=== PATIENT | female | born 1990 | race Caucasian/White ===

== ENCOUNTER 2021-06-08 17:45 | Emergency (ER) | payer BC ==
[2021-06-08 19:20] VITALS: BP 144/90; PULSE 90; RESP 18; TEMP 97.9
[2021-06-08 20:09] LABS: Appearance,Urine Clear (Clear); Bilirubin,Urine Negative (Negative); Blood,Urine Negative (Negative); Color,Urine Yellow; Glucose,Urine (UA) Negative (Negative); Ketones,Urine 2+ (Negative); Leukocyte Esterase,Urine Negative (Negative); Nitrite,Urine Negative (Negative); PH, Urine 5.5 (5.0-8.0); Protein,Urine Trace (Negative); Specific Gravity,Urine 1.036 (1.001-1.035); Urobilinogen,Urine <2.0 mg/dL (<2.0)
[2021-06-08] MEDS ORDERED: SODIUM CHLORIDE 0.9% 2,000 ML IV STA (20:50)
[2021-06-08] MEDS ORDERED: ONDANSETRON 4 MG/2 ML VIAL IVP STA (20:52)
[2021-06-08 21:49] LABS: ALT 16 U/L (4-34); AST 23 U/L (14-36); African American GFR (CKD) >90 (>60 ml/min/1.73 sqM); Albumin 4.4 g/dL (3.5-5.0); Alkaline Phosphatase 42 U/L (38-126); Anion Gap 7 mmol/L; Basophils # (A) 0.1 k/uL (0-0.2); Basophils % (A) 1 %; Blood Urea Nitrogen 8 mg/dL (7-17); Calcium 9.2 mg/dL (8.4-10.2); Carbon Dioxide 22 mmol/L (22-30); Chloride 105 mmol/L (98-107); Eosinophils # (A) 0.1 k/uL (0-0.7); Eosinophils % (A) 1 %; Glucose 86 mg/dL (74-99); HCT 39.4 % (34.0-46.0); HGB 13.8 gm/dL (11.4-16.0); Lipase 27 U/L (23-300); Lymphocytes # (A) 2.9 k/uL (1.0-4.8); Lymphocytes % (A) 35 %; MCH 31.7 pg (25.0-35.0); MCHC 34.9 g/dL (31.0-37.0); MCV 90.7 fL (80.0-100.0); Monocytes # (A) 0.4 k/uL (0-1.0); Monocytes % (A) 5 %; Neutrophils # (A) 4.6 k/uL (1.3-7.7); Neutrophils % (A) 57 %; Non-African American GFR(CKD) >90 (>60 ml/min/1.73 sqM); Platelet Count 257 k/uL (150-450); Potassium 3.8 mmol/L (3.5-5.1); RBC 4.35 m/uL (3.80-5.40); Sodium 134 mmol/L (137-145); Total Bilirubin 0.5 mg/dL (0.2-1.3); Total Protein 7.2 g/dL (6.3-8.2); WBC 8.1 k/uL (3.8-10.6)
[2021-06-08] MEDS ORDERED: ACETAMINOPHEN TAB 500 MG TAB PO STA (22:00)
--- NOTE | 2021-06-08 22:04 | ED ---
Abdominal Pain HPI - General Chief Complaint: Abdominal Pain Stated Complaint: 11 wks preg/nausea Time Seen by Provider: 06/08/21 20:40 Source: patient Mode of arrival: ambulatory Limitations: no limitations - History of Present Illness Initial Comments: Patient is a A5 female with a positive at-home test who presents to the emergency department with the chief complaint of intermittent nausea and vomiting 3 weeks. Patient states that she estimates she is 10 weeks with unknown date of last menstrual period as patient reports she has had several miscarriages that have caused her menstruation to be inconsistent. Patient reports that she called Dr. Gresham today due to her inability to tolerate food or water who sent her to the emergency department. Patient states she has intermittent lower abdominal cramping with radiation to the lower back. She denies history of trauma or injury. Patient reports a headache that she be lieves is due to dehydration. She denies other concerns at this time including fever, chills, shortness of breath, chest pain, flank pain, constipation, diarrhea, burning with urination, vaginal bleeding. Patient has not had her initial appointment with Dr. Gresham for first ultrasound. - Related Data Previous Rx's Medication Instructions Recorded Ondansetron Odt [Zofran Odt] 4 mg PO Q8HR PRN 7 Days #21 tab 06/08/21 Allergies Allergy/AdvReac Type Severity Reaction Status Date / Time No Known Allergies Allergy Verified 06/08/21 19:20 Review of Systems ROS Statement: Those systems with pertinent positive or pertinent negative responses have been documented in the HPI. ROS Other: All systems not noted in ROS Statement are negative. Past Medical History Past Medical History: Asthma, Thyroid Disorder History of Any Multi-Drug Resistant Organisms: None Reported Additional Past Surgical History / Comment(s): breast biopsy Past Psychological History: No Psychological Hx Reported Smoking Status: Never smoker Past Alcohol Use History: None Reported Past Drug Use History: Marijuana General Exam Limitations: no limitations General appearance: alert, in no apparent distress Head exam: Present: atraumatic, normocephalic, normal inspection Eye exam: Present: normal appearance, PERRL, EOMI. Absent: scleral icterus, conjunctival injection, periorbital swelling ENT exam: Present: mucous membranes moist Respiratory exam: Present: normal lung sounds bilaterally. Absent: respiratory distress, wheezes, rales, rhonchi, stridor Cardiovascular Exam: Present: regular rate, normal rhythm, normal heart sounds. Absent: systolic murmur, diastolic murmur, rubs, gallop, clicks GI/Abdominal exam: Present: soft, normal bowel sounds. Absent: distended, tenderness, guarding, rebound, rigid Back exam: Present: normal inspection, full ROM. Absent: tenderness Neurological exam: Present: alert, oriented X3, CN II-XII intact Psychiatric exam: Present: normal affect, normal mood Skin exam: Present: warm, dry, intact, normal color. Absent: rash Course Vital Signs 06/08/21 19:17 Temperature 97.9 F Pulse Rate 90 Respiratory 18 Rate Blood Pressure 144/90 O2 Sat by Pulse 97 Oximetry Medical Decision Making - Medical Decision Making This is a 31-year-old female with a positive at-home test who presents with intermittent nausea and vomiting 3 weeks. Thorough history and examination were performed. The abdomen is soft and nontender in all 4 quadrants. Laboratory studies are relatively unremarkable. Urinalysis does not indicate infection. Ultrasound was obtained which shows a viable intrauterine with ultrasound gestational age 10 weeks and 2 days with heart rate 163. Patient given large fluid bolus and Zofran. On reevaluation patient is feeling much better. Patient tolerated PO test. Patient will be discharged with Zofran prescription. I also recommended [id number] vitamin B6 and Unisom. She is instructed to follow-up with Dr. Gresham at her appointment tomorrow. Return par ameters discussed. Patient verbalizes understanding and is agreeable to plan. Dr. Meade is my attending. - Lab Data Result diagrams: 06/08/21 21:08 06/08/21 21:08 Lab Results 06/08/21 06/08/21 06/08/21 Range/Units 19:21 21:08 21:08 WBC 8.1 (3.8-10.6) k/uL RBC 4.35 (3.80-5.40) m/uL Hgb 13.8 (11.4-16.0) gm/dL Hct 39.4 (34.0-46.0) % MCV 90.7 (80.0-100.0) fL MCH 31.7 (25.0-35.0) pg MCHC 34.9 (31.0-37.0) g/dL RDW 13.0 (11.5-15.5) % Plt Count 257 (150-450) k/uL MPV 9.0 Neutrophils % 57 % Lymphocytes % 35 % Monocytes % 5 % Eosinophils % 1 % Basophils % 1 % Neutrophils # 4.6 (1.3-7.7) k/uL Lymphocytes # 2.9 (1.0-4.8) k/uL Monocytes # 0.4 (0-1.0) k/uL Eosinophils # 0.1 (0-0.7) k/uL Basophils # 0.1 (0-0.2) k/uL Sodium 134 L (137-145) mmol/L Potassium 3.8 (3.5-5.1) mmol/L Chloride 105 (98-107) mmol/L Carbon Dioxide 22 (22-30) mmol/L Anion Gap 7 mmol/L BUN 8 (7-17) mg/dL Creatinine 0.47 L (0.52-1.04) mg/dL Est GFR (CKD-EPI)AfAm >90 (>60 ml/min/1.73 sqM) Est GFR (CKD-EPI)NonAf >90 (>60 ml/min/1.73 sqM) Glucose 86 (74-99) mg/dL Calcium 9.2 (8.4-10.2) mg/dL Total Bilirubin 0.5 (0.2-1.3) mg/dL AST 23 (14-36) U/L ALT 16 (4-34) U/L Alkaline Phosphatase 42 (38-126) U/L Total Protein 7.2 (6.3-8.2) g/dL Albumin 4.4 (3.5-5.0) g/dL Lipase 27 (23-300) U/L HCG, Quant 55407.0 mIU/mL Urine Color Yellow Urine Appearance Clear (Clear) Urine pH 5.5 (5.0-8.0) Ur Specific Horatio 1.036 H (1.001-1.035) Urine Protein Trace H (Negative) Urine Glucose (UA) Negative (Negative) Urine Ketones 2+ H (Negative) Urine Blood Negative (Negative) Urine Nitrite Negative (Negative) Urine Bilirubin Negative (Negative) Urine Urobilinogen <2.0 (<2.0) mg/dL Ur Leukocyte Esterase Negative (Negative) Disposition Clinical Impression: Nausea and vomiting during Disposition: HOME SELF-CARE Condition: Good Additional Instructions: Please take Zofran as prescribed. You may take [id number] vitamin B6 and Unisom for nausea and vomiting. Please do not operate machinery while taking Unisom as it can cause drowsiness. Please follow-up with Dr. Gresham as scheduled tomorrow. Return to the emergency department if you experience new, concerning, or worsening symptoms. Prescriptions: Ondansetron Odt [Zofran Odt] 4 mg PO Q8HR PRN 7 Days #21 tab PRN Reason: Nausea Is patient prescribed a controlled substance at d/c from ED?: No Referrals: Wei Lema MD [Primary Care Provider] - 1-2 days Time of Disposition: 22:46
--- NOTE | 2021-06-08 22:05 | US ---
EXAMINATION TYPE: Transabdominal DATE OF EXAM: 06/08/2021 9:37 PM COMPARISON: NONE CLINICAL HISTORY: pelvic cramping, no previous US. Patient is experiencing back pain and pelvic cramp ing, n/v. EXAM PERFORMED: Transabdominal (TA) EXAM MEASUREMENTS: A4 GESTATIONAL AGE / DATING Physician Established: (10 weeks/5 days) EDC: 12/30/2021 Dates by LMP: LMP unknown Dates by First Scan: No previous this is first scan Dates by Current Scan for: (10 weeks/2 days) EDC: 01/02/2022 MATERNAL ANATOMY Uterus: 9.8 x 6.5 x 8.3 cm Right Ovary: 3.4 x 2.5 x 2.2 cm Left Ovary: 3.3 x 2.1 x 2.4 cm Post CDS / Adnexa: wnl Presence of free fluid: no Presence of corpus luteal cyst: no Presence of subchorionic bleed: no GESTATION / SURVEY CRL: 3.35 (10 weeks/2 days) MSD: wnl Yolk Sac (normal less than 6mm): no yolk sac seen Heart Rate: 163 bpm Rhythm: normal IUP: Viable IUP Date of LMP: unknown Beta HcG (if available): Not available at this time IMPRESSION: The ultrasound gestational age is 10 weeks and 2 days.
== END 2021-06-08 23:01 | disposition home or self-care (01) ==
LOC: EC 17:45
DX: O21.8 Other vomiting complicating pregnancy (principal); O99.511 Diseases of the respiratory system complicating pregnancy, first trimester; J45.909 Unspecified asthma, uncomplicated; E07.9 Disorder of thyroid, unspecified; F12.90 Cannabis use, unspecified, uncomplicated; Z3A.10 10 weeks gestation of pregnancy
CPT/HCPCS: 99284; 96374; 96361 ×2; 36415; 80053; 83690; 85025; 81003; 84702; 76801; J2405

== ENCOUNTER 2021-10-26 23:02 | Outpatient (CLI) | payer BC ==
[2021-10-27 02:44] VITALS: BP 130/72; PULSE 86; RESP 16; TEMP 96.7
--- NOTE | 2021-10-29 09:02 | P.MSEPDOC ---
Presenting Problems - Arrival Data Date of Arrival on Unit: 10/26/21 Time of Arrival on Unit: 23:03 Mode of Transport: Ambulatory - Complaint OB-Reason for Admission/Chief Complaint: Possible Onset of Labor Comment: contractions 4 min apart for approx an hour Medical History - Information : 7 Para: 1 Term: 1 : 0 Abortions: Spontaneous or Elective: 5 Number of Living Children: 1 - Gestational Age Gestational Age by YOEL (wks/days): 30 Weeks and 3 Days Review of Systems - Review of Systems Constitutional: No problems Breast: No problems ENT: No problems Cardiovascular: No problems Respiratory: No problems Gastrointestinal: No problems Genitourinary: No problems Musculoskeletal: No problems Neurological: No problems Skin: No problems Vital Signs - Temperature Temperature: 96.7 F Temperature Source: Temporal Artery Scan - Pulse Right Supine Ulnar Pulse Rate: 86 Pulse Assessment Method: Automatic Cuff - Respirations Respiratory Rate: 16 Oxygen Delivery Method: Room Air O2 Sat by Pulse Oximetry: 99 - Blood Pressure Right Arm Supine Blood Pressure: 130/72 Blood Pressure Mean: 91 Blood Pressure Source: Automatic Cuff Medical Screen Scoring - Cervical Exam Dilation (cm): 0 Membranes: Intact - Uterine Contractions Frequency From (mins): 4 Frequency To (mins): 4 Duration From (seconds): 40 Duration To (seconds): 50 Intensity: Mild Resting: Soft to palpation - Assessment - Baby A Baseline FHR: 130 Heart Rate - NICHD Category: Category I (Normal) NST: Reactive Physician Notification - Physician Notified Physician Notified Date: 10/27/21 Physician Notified Time: 00:06 Physician: Yashira Calhoun New Order Received: Yes - Notification Comment Comment: Run FFN and orally hydrate patient then may discharge to home if FFN comes back negative Maternal Triage Index - Maternal Triage Index Presenting for scheduled procedure w/no complaint: No - Stat/Priority 1 Stat Priority 1: No - Urgent/Priority 2 Urgent Priority 2: Yes Provider Notified: Yashira Calhoun Provider Notified Time: 00:06 Criteria Met for Priority 2: <34 weeks w detectable uterine ctx, closed thick and high, Disposition - Disposition OB Disposition: Physician follow up in office, Discharge to home Discharge Date: 10/27/21 Discharge Time: 01:34 I agree with the RN Medical Screening Exam: Yes Case reviewed; plan agreed upon as documented in EMR&OBIX.: Yes Diagnosis: FALSE LABOR BEFORE 37 COMPLETED WEEKS OF GEST, THIRD TRI
== END 2021-10-27 01:34 | disposition home or self-care (01) ==
LOC: FBPOP 23:02
PROVIDERS: ATTEND Obstetrics & Gynecology
DX: O47.03 False labor before 37 completed weeks of gestation, third trimester (principal); Z3A.30 30 weeks gestation of pregnancy
CPT/HCPCS: 59025; 82731; 99213

== ENCOUNTER 2021-12-07 13:30 | Outpatient (CLI) | payer BC ==
[2021-12-07] MEDS ORDERED: LACTATED RINGERS 1,000 ML IV SCH (15:00)
[2021-12-07 15:41] VITALS: BP 135/88; PULSE 91; RESP 18; TEMP 96
--- NOTE | 2021-12-07 20:15 | P.MSEPDOC ---
Presenting Problems - Arrival Data Date of Arrival on Unit: 12/07/21 Time of Arrival on Unit: 13:30 Mode of Transport: Ambulatory - Complaint OB-Reason for Admission/Chief Complaint: Possible Onset of Labor Comment: Contractions since 399 Medical History - Information : 7 Para: 1 Term: 1 Number of Living Children: 1 - Gestational Age Gestational Age by YOEL (wks/days): 36 Weeks and 2 Days Review of Systems - Review of Systems Constitutional: No problems Breast: No problems ENT: No problems Cardiovascular: No problems Respiratory: No problems Gastrointestinal: No problems Genitourinary: No problems Musculoskeletal: No problems Neurological: No problems Skin: No problems Vital Signs - Temperature Temperature: 96 F Temperature Source: Temporal Artery Scan - Pulse Apical Pulse Rate: 91 Pulse Assessment Method: Automatic Cuff - Respirations Respiratory Rate: 18 Oxygen Delivery Method: Room Air O2 Sat by Pulse Oximetry: 98 - Blood Pressure Right Arm Sitting Blood Pressure: 135/88 Blood Pressure Mean: 103 Blood Pressure Source: Automatic Cuff Medical Screen Scoring - Cervical Exam Dilation (cm): 1.5 Effacement (%): 50 Station: -2 Membranes: Intact - Uterine Contractions Frequency From (mins): 1 Frequency To (mins): 3 Duration From (seconds): 30 Duration To (seconds): 40 Intensity: Moderate Resting: Soft to palpation - Assessment - Baby A Baseline FHR: 145 Heart Rate - NICHD Category: Category I (Normal) NST: Reactive Physician Notification - Physician Notified Physician Notified Date: 12/07/21 Physician Notified Time: 14:30 Physician: Astrid Gresham New Order Received: Yes - Notification Comment Comment: [facility] , 36 05/01, c/o cramping that radiates. to back, rectal pressure, starry [place] since Saturday, epi/heartburn pain since Saturday. Reviewed BP, negative amnisure, reactive NST. Orders rec'd to provide 1L LR and recheck. cervix. If no change, pt may be d/c home after fluid. *SVE unchanged; Pt states feeling better c\IV fluids and is comfortable going home. Maternal Triage Index - Maternal Triage Index Presenting for scheduled procedure w/no complaint: No - Stat/Priority 1 Stat Priority 1: No - Urgent/Priority 2 Urgent Priority 2: No - Prompt/Priority 3 Prompt Priority 3: Yes Criteria Met for Priority 3: 36 2/7; contractions Disposition - Disposition OB Disposition: Physician follow up in office, Discharge to home, Written follow up instructions reviewed Discharge Date: 12/07/21 Discharge Time: 15:30 I agree with the RN Medical Screening Exam: Yes Case reviewed; plan agreed upon as documented in EMR&OBIX.: Yes Diagnosis: FALSE LABOR BEFORE 37 COMPLETED WEEKS OF GEST, THIRD TRI
== END 2021-12-07 15:30 | disposition home or self-care (01) ==
LOC: FBPOP 13:30
PROVIDERS: ATTEND Obstetrics & Gynecology
DX: O47.03 False labor before 37 completed weeks of gestation, third trimester (principal); Z3A.36 36 weeks gestation of pregnancy
CPT/HCPCS: 59025; 96360; 99215

== ENCOUNTER 2021-12-27 06:14 | Inpatient (IN) | payer BC ==
[2021-12-27] MEDS ORDERED: METHYLERGONOVINE 0.2 MG/ML 1 ML AMP IM PRN (07:07)
[2021-12-27] MEDS ORDERED: TERBUTALINE 1 MG/ML VIAL SQ PRN (07:07)
[2021-12-27] MEDS ORDERED: LIDOCAINE 0.5% (PF) 5 MG/ML (50 ML SDV) SQ PRN (07:07)
[2021-12-27] MEDS ORDERED: OXYTOCIN 10 UNIT/ML 1 ML VIAL IM PRN (07:07)
[2021-12-27] MEDS ORDERED: CARBOPROST TROMETHAMINE 250 MCG/ML 1 ML AMP IM PRN (07:07)
[2021-12-27] MEDS ORDERED: OXYTOCIN 30 UNITS/500 ML NS 30 UNIT in SALINE 1 500ML.BAG IV SCH (07:15)
[2021-12-27] MEDS: LACTATED RINGERS 1,000 ML IV SCH ×3 (07:16→15:07)
[2021-12-27 07:19] LABS: Basophils % (A) 0 %; Eosinophils # (A) 0.1 k/uL (0-0.7); Eosinophils % (A) 1 %; HCT 35.9 % (34.0-46.0); HGB 12.7 gm/dL (11.4-16.0); Lymphocytes # (A) 1.5 k/uL (1.0-4.8); Lymphocytes % (A) 18 %; MCHC 35.4 g/dL (31.0-37.0); MCV 90.4 fL (80.0-100.0); Mean Platelet Volume 11.2; Monocytes # (A) 0.4 k/uL (0-1.0); Monocytes % (A) 5 %; Neutrophils # (A) 6.3 k/uL (1.3-7.7); Neutrophils % (A) 75 %; Platelet Count 161 k/uL (150-450); RBC 3.97 m/uL (3.80-5.40); RDW 12.9 % (11.5-15.5); WBC 8.4 k/uL (3.8-10.6)
--- NOTE | 2021-12-27 08:06 | P.HPOB ---
History of Present Illness H&P Date: 12/27/21 Chief Complaint: Here for induction of labor This is a 31-year-old female 6 para 1051 EDC 01/02/2022 at 39 and one sevenths weeks' gestation. Patient presents today for induction of labor. She is having mild irregular spontaneous contractions. Fetus is been active throughout the . Past medical history is significant for acid reflux, asthma, depression, hypothyroidism. Past surgical history breast biopsy with negative pathology. Current medications baby aspirin daily, levothyroxine 100 MCG's daily, vitamin daily. ALLERGIES cinnamon to which reports an intolerance, as well as lactose intolerance. Family history significant for hypertension, hyperlipidemia, prostate cancer, breast cancer, rheumatoid arthritis, diabetes, lung cancer, alcoholism, colon cancer, bone cancer, cystic fibrosis, thyroid disease. Obstetric history vaginal delivery at [facility] in 2013 of 7 lbs. 8 oz. female . Social history patient is a former tobacco smoker, she is , is present. She denies alcohol or drug use. history significant for blood type A+, rubella status immune. VDRL testing, hepatitis B surface antigen, HIV testing, Pap smear, gonorrhea Chlamydia cultures, group B strep cultures all negative. One-hour Glucola 1:30. Cystic fibrosis carrier noted. On exam patient is 5 foot 6 inch, blood pressure 141/90, approximately 270 pounds. Vital signs are stable and she is afebrile. Chest is clear in all camacho. Extremities reveal +1 edema. Cervix is 3-4 cm dilated, 70%, -2 station, vertex presentation. Artificial amniorrhexis reveals clear fluid. heart tones are consistent with reactive NST. Impression: 39 and one sevenths weeks intrauterine , here for induction of labor. All signs reassuring. Plan: We will check AST, ALTs, uric acid with admitting blood work. Close m aternal and surveillance. Oxytocin per hospital protocol. Analgesic options reviewed. Anticipate normal spontaneous vaginal delivery. Review of Systems Constitutional: Reports as per HPI Past Medical History Past Medical History: Asthma, Thyroid Disorder History of Any Multi-Drug Resistant Organisms: None Reported Additional Past Surgical History / Comment(s): left breast biopsy Past Anesthesia/Blood Transfusion Reactions: No Reported Reaction Past Psychological History: No Psychological Hx Reported Smoking Status: Never smoker Past Alcohol Use History: None Reported Past Drug Use History: Marijuana Additional Drug Use History / Comment(s): Before - Past Family History Mother Family Medical History: Hypertension, Thyroid Disorder Daughter(s) Additional Family Medical History / Comment(s): Cystic Fibrosis Medications and Allergies Home Medications Medication Instructions Recorded Confirmed Type Aspirin [Children's Aspirin] 81 mg PO DAILY 10/26/21 12/27/21 History Levothyroxine Sodium 125 mcg PO DAILY 10/26/21 12/27/21 History Vit No.179/Iron/Folic 1 each PO DAILY 10/26/21 12/27/21 History [ Tablet] Allergies Allergy/AdvReac Type Severity Reaction Status Date / Time No Known Allergies Allergy Verified 12/07/21 13:49 Exam Vital Signs Temp Pulse Resp BP Pulse Ox 12/27/21 06:51 96.6 F L 102 H 18 141/90 96 Intake and Output 12/26/21 12/27/21 12/27/21 22:59 06:59 14:59 Other: Weight 118.841 kg See dictation under HPI please Results Result Diagrams: 12/27/21 06:42 Assessment and Plan Assessment: 39 and one sevenths weeks intrauterine , here for induction of labor. All signs reassuring. Plan: Close maternal and surveillance. Oxytocin per hospital protocol. Anticipate normal spontaneous vaginal delivery. Time with Patient: Less than 30
[2021-12-27 09:13] LABS: Uric Acid 3.6 mg/dL (3.7-7.4)
[2021-12-27] MEDS ORDERED: fentaNYL (PF) 50 MCG/ML 5 ML AMP ONE (10:18)
[2021-12-27] MEDS ORDERED: SODIUM CHLORIDE 0.9% 100 ML BAG ONE (10:18)
[2021-12-27] MEDS ORDERED: ROPIVACAINE 5 MG/ML 20 ML AMPULE ONE (10:18)
[2021-12-27] MEDS ORDERED: ZOLPIDEM 5 MG TAB PO PRN (17:02)
[2021-12-27] MEDS ORDERED: BENZOCAINE/MENTHOL SPRAY 1 GM/SPRAY AEROSOL TOPICAL PRN (17:02)
[2021-12-27] MEDS ORDERED: HYDROCORTISONE 2.5% RECTAL CREAM 30 GM TUBE RECTAL PRN (17:02)
[2021-12-27] MEDS ORDERED: diphenhydrAMINE 25 MG CAP PO PRN (17:02)
[2021-12-27] MEDS ORDERED: LANOLIN CREAM 5 GM TUBE TOPICAL PRN (17:02)
[2021-12-27] MEDS ORDERED: diphenhydrAMINE ELIXIR 25 MG/10 ML CUP PO PRN (17:02)
[2021-12-27] MEDS ORDERED: diphenhydrAMINE 50 MG/ML 1 ML VIAL IVP PRN ×2 (17:02)
[2021-12-27] MEDS ORDERED: SIMETHICONE 80 MG CHEWABLE PO PRN (17:02)
[2021-12-27] MEDS ORDERED: diphenhydrAMINE 50 MG CAP PO PRN (17:02)
--- NOTE | 2021-12-27 17:02 | P.PROBDLV ---
Vaginal Delivery Note - . Vaginal Delivery Note: This is a 31-year-old 6 para 1051 EDC 01/02/2022 at 39 and one sevenths weeks' gestation who presented for induction with favorable multiparous cervix. remarkable for rubella status immune, group B strep cultures negative, blood type A positive, history of asthma and depression also noted, patient is a cystic fibrosis carrier. Please see dictated history and physical for details. Artificial amniorrhexis revealed clear fluid. Oxytocin was started and titrated per hospital protocol. Epidural was placed per her request. heart tones were reassuring throughout the first and second stages. Patient became completely dilated at 1614 hrs. Patient began the second stage of labor. Ultimately the perineal body was prepped and draped in the usual sterile fashion. Infant's head delivered occiput anterior and he restituted accordingly. There was a nuchal cord 2 that was reduced. The left or anterior shoulder was delivered from underneath the pubic symphysis at which time the oropharynx, nasopharynx, and external nares were all bulb suctioned. Patient was officially delivered of a liveborn male at 1641 hrs. Umbilical cord was doubly clamped and ligated, he was handed to waiting nurses for evaluation where scores of 7 and 9 at one and 5 minutes respectively were given. The placenta delivered spontaneously, it was inspected and noted to be intact with trivascular cord at 1644 hrs. Perineal body was then carefully inspected. Uterus was massaged. Her prescription perineal laceration repaired with repeat suture in the usual fashion. Excellent reapproximation was noted. Fundus is firm and in the midline, symmetric and 18 week size upon completion of delivery. weighs 8 lbs. 12 oz. or 3980 g. Patient and her family are allowed to begin the bonding experience in the LDR. She is requesting circumcision for her son.
[2021-12-27] MEDS: IBUPROFEN 600 MG TAB PO SCH (18:10)
[2021-12-27] MEDS: ACETAMINOPHEN TAB 325 MG TAB PO PRN (21:11)
[2021-12-27] MEDS: SENNOSIDES-DOCUSATE SODIUM 1 EACH TAB PO SCH (21:11)
[2021-12-28] MEDS: IBUPROFEN 600 MG TAB PO SCH ×3 (00:59→18:05)
[2021-12-28] MEDS: ACETAMINOPHEN TAB 325 MG TAB PO PRN ×2 (04:29→11:30)
[2021-12-28] MEDS ORDERED: LEVOTHYROXINE 125 MCG TAB PO SCH (06:30)
--- NOTE | 2021-12-28 08:06 | P.DS ---
Providers Date of admission: 12/27/21 06:14 Expected date of discharge: 12/28/21 Attending physician: Astrid Gresham Primary care physician: Stated None Hospital Course: This is a 31-year-old female 6 para 1051 EDC 01/02/2022 at 39 and one sevenths weeks' gestation who presented for induction with favorable cervix. Her history is remarkable for cystic fibrosis carrier status, depression, hypothyroidism, asthma. Blood type B positive, rubella status immune, group B strep cultures negative. Please see dictated history and physical for details. Artificial amniorrhexis revealed clear fluid. Epidural was placed per her request. She went on to deliver vaginally a liveborn male with scores of 7 and 9 at one and 5 minutes respectively. There was a nuchal cord 2 that was reduced, a small first-degree perineal laceration easily repaired, estimated blood loss 250 mL's. weighed 3980 g or 8 lbs. 12 oz. Please see my dictated delivery note for details. This morning the patient and her are doing well. Patient is voiding, ambulating, passing flatus without difficulty. Vital signs are stable and she is afebrile. Fundus is firm and in the midline, symmetric and 18 week size. Extremities are negative for edema. is doing well. Circumcision will be performed at this time. Patient is judged to be in excellent condition for discharge home. She will follow-up with me in the office in 6 weeks. I have reminded her no intercourse, tampons or douching. She will use [id number] Advil or Aleve, or Motrin as needed for pain. We have briefly discussed contraceptive options and we will discuss this further in the office. Assessment: Doing well first day Patient Condition at Discharge: Good Plan - Discharge Summary Discharge Rx Participant: No New Discharge Prescriptions: No Action Vit No.179/Iron/Folic [ Tablet] 1 each PO DAILY Aspirin [Children's Aspirin] 81 mg PO DAILY Levothyroxine Sodium 125 mcg PO DAILY Discharge Medication List Aspirin [Children's Aspirin] 81 mg PO DAILY 10/26/21 [History] Levothyroxine Sodium 125 mcg PO DAILY 10/26/21 [History] Vit No.179/Iron/Folic [ Tablet] 1 each PO DAILY 10/26/21 [History] Follow up Appointment(s)/Referral(s): Astrid Gresham MD [STAFF PHYSICIAN] - 6 Weeks
[2021-12-28] MEDS: SENNOSIDES-DOCUSATE SODIUM 1 EACH TAB PO SCH (08:18)
[2021-12-28 12:54] VITALS: RESP 16
[2021-12-28 15:35] VITALS: BP 129/84; PULSE 72; TEMP 97.7
== END 2021-12-28 18:45 | disposition home or self-care (01) | DRG 807 ==
LOC: 4FBP 06:14
PROVIDERS: ADMIT Obstetrics & Gynecology; ATTEND Obstetrics & Gynecology
PROC: 10907ZC Drainage of Amniotic Fluid, Therapeutic from Products of Conception, Via Natural or Artificial Opening (ICD-10-PCS; principal; 2021-12-27)
PROC: 10E0XZZ Delivery of Products of Conception, External Approach (ICD-10-PCS; 2021-12-27)
PROC: 0HQ9XZZ Repair Perineum Skin, External Approach (ICD-10-PCS; 2021-12-27)
PROC: 3E0R3BZ Introduction of Anesthetic Agent into Spinal Canal, Percutaneous Approach (ICD-10-PCS; 2021-12-27)
DX: O69.81X0 Labor and delivery complicated by cord around neck, without compression, not applicable or unspecified (principal); Z37.0 Single live birth; J45.909 Unspecified asthma, uncomplicated; F32.A Depression, unspecified; E03.9 Hypothyroidism, unspecified; O99.344 Other mental disorders complicating childbirth; E73.9 Lactose intolerance, unspecified; O99.52 Diseases of the respiratory system complicating childbirth; Z14.1 Cystic fibrosis carrier; Z87.891 Personal history of nicotine dependence; Z91.018 Allergy to other foods; Z3A.39 39 weeks gestation of pregnancy; O70.0 First degree perineal laceration during delivery; O99.284 Endocrine, nutritional and metabolic diseases complicating childbirth; Z79.890 Hormone replacement therapy; Z79.82 Long term (current) use of aspirin
CPT/HCPCS: 84450; 84460; 84550; 85025; 86850; 86900; 86901

== ENCOUNTER 2022-10-04 15:35 | Emergency (ER) | payer BC ==
[2022-10-04 15:52] VITALS: TEMP 98.5
[2022-10-04 16:38] LABS: Prothrombin Time 10.4 sec (9.0-12.0)
[2022-10-04 16:46] LABS: ALT 120 U/L (4-34); AST 80 U/L (14-36); African American GFR (CKD) >90 (>60 ml/min/1.73 sqM); Albumin 4.7 g/dL (3.5-5.0); Alkaline Phosphatase 59 U/L (38-126); Anion Gap 10 mmol/L; Blood Urea Nitrogen 10 mg/dL (7-17); Calcium 9.1 mg/dL (8.4-10.2); Carbon Dioxide 23 mmol/L (22-30); Chloride 105 mmol/L (98-107); Glucose 98 mg/dL (74-99); Non-African American GFR(CKD) >90 (>60 ml/min/1.73 sqM); Potassium 4.2 mmol/L (3.5-5.1); Sodium 138 mmol/L (137-145); Total Bilirubin 0.6 mg/dL (0.2-1.3); Total Protein 7.9 g/dL (6.3-8.2)
[2022-10-04 16:56] LABS: Basophils % (A) 1 %; Eosinophils # (A) 0.1 k/uL (0-0.7); Eosinophils % (A) 2 %; HGB 13.9 gm/dL (11.4-16.0); Lymphocytes # (A) 2.5 k/uL (1.0-4.8); Lymphocytes % (A) 39 %; MCH 32.5 pg (25.0-35.0); MCHC 34.9 g/dL (31.0-37.0); MCV 93.3 fL (80.0-100.0); Mean Platelet Volume 8.6; Monocytes # (A) 0.4 k/uL (0-1.0); Monocytes % (A) 6 %; Neutrophils # (A) 3.4 k/uL (1.3-7.7); Neutrophils % (A) 52 %; Platelet Count 210 k/uL (150-450); RBC 4.29 m/uL (3.80-5.40); RDW 12.4 % (11.5-15.5); WBC 6.5 k/uL (3.8-10.6)
[2022-10-04] MEDS ORDERED: LORazepam 2 MG/ML INJ IV STA (17:40)
[2022-10-04] MEDS ORDERED: SODIUM CHLORIDE 0.9% 1,000 ML IV STA (17:40)
[2022-10-04] MEDS ORDERED: MECLIZINE 12.5 MG TAB PO STA (17:40)
[2022-10-04] MEDS ORDERED: SODIUM CHLORIDE 0.9% 500 ML 500 ML IV STA (17:40)
--- NOTE | 2022-10-04 18:15 | CT ---
EXAMINATION TYPE: CT brain wo con DATE OF EXAM: 10/04/2022 COMPARISON: None HISTORY: Vertigo CT DLP: 1153.4 mGycm. Automated Exposure Control for Dose Reduction was Utilized. TECHNIQUE: CT scan of the head is performed without contrast. FINDINGS: There is no acute intracranial hemorrhage, mass effect, or midline shift identified. The ve ntricles and sulci are within normal limits in size. The globes are intact and the visualized sinuses are clear. IMPRESSION: No acute intracranial hemorrhage, mass effect, or midline shift is seen.
--- NOTE | 2022-10-04 20:30 | ED ---
Dizziness HPI - General Chief Complaint: Dizziness Stated Complaint: chest pain Time Seen by Provider: 10/04/22 17:32 Source: patient, family Mode of arrival: wheelchair Limitations: no limitations - Related Data Previous Rx's Medication Instructions Recorded Meclizine [Antivert] 25 mg PO TID PRN #20 tab 10/04/22 Allergies Allergy/AdvReac Type Severity Reaction Status Date / Time No Known Allergies Allergy Verified 10/04/22 16:17 Review of Systems ROS Statement: Those systems with pertinent positive or pertinent negative responses have been documented in the HPI. ROS Other: All systems not noted in ROS Statement are negative. 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 History of Any Multi-Drug Resistant Organisms: None Reported Additional Past Surgical History / Comment(s): left breast biopsy Past Anesthesia/Blood Transfusion Reactions: No Reported Reaction Past Psychological History: No Psychological Hx Reported Smoking Status: Never smoker Past Alcohol Use History: None Reported Past Drug Use History: Marijuana - Past Family History Mother Family Medical History: Hypertension, Thyroid Disorder Daughter(s) Additional Family Medical History / Comment(s): Cystic Fibrosis General Exam Limitations: no limitations Course Vital Signs 10/04/22 10/04/22 10/04/22 15:47 15:50 16:00 Temperature 98.5 F Pulse Rate 75 89 Respiratory 20 Rate Blood Pressure 175/100 175/100 153/87 O2 Sat by Pulse 99 99 97 Oximetry 10/04/22 10/04/22 10/04/22 16:10 16:13 16:20 Temperature Pulse Rate 70 71 65 Respiratory 20 Rate Blood Pressure 171/100 155/102 155/102 O2 Sat by Pulse 96 99 100 Oximetry 10/04/22 10/04/22 10/04/22 16:30 16:40 16:50 Temperature Pulse Rate 74 81 66 Respiratory Rate Blood Pressure 155/102 137/101 137/101 O2 Sat by Pulse 99 100 100 Oximetry 10/04/22 10/04/22 10/04/22 17:00 17:10 17:20 Temperature Pulse Rate 69 71 66 Respiratory 20 Rate Blood Pressure 137/101 147/87 147/87 O2 Sat by Pulse 99 98 97 Oximetry 10/04/22 10/04/22 10/04/22 17:30 17:40 17:50 Temperature Pulse Rate 67 64 Respiratory Rate Blood Pressure 147/87 133/78 133/78 O2 Sat by Pulse 99 99 Oximetry 10/04/22 10/04/22 10/04/22 18:00 18:10 18:20 Temperature Pulse Rate 62 64 Respiratory Rate Blood Pressure 133/78 131/87 131/87 O2 Sat by Pulse 98 100 Oximetry 10/04/22 10/04/22 10/04/22 18:30 18:40 18:50 Temperature Pulse Rate 67 67 63 Respiratory Rate Blood Pressure 131/87 125/91 125/91 O2 Sat by Pulse 98 100 99 Oximetry 10/04/22 10/04/22 10/04/22 19:00 19:10 19:20 Temperature Pulse Rate 57 L 59 L 61 Respiratory 20 Rate Blood Pressure 125/91 136/87 136/87 O2 Sat by Pulse 99 99 100 Oximetry 10/04/22 19:30 Temperature Pulse Rate 63 Respiratory Rate Blood Pressure 136/87 O2 Sat by Pulse 99 Oximetry Medical Decision Making - Lab Data Result diagrams: 10/04/22 16:45 10/04/22 16:17 Lab Results 10/04/22 10/04/22 10/04/22 Range/Units 16:17 16:17 16:17 WBC (3.8-10.6) k/uL RBC (3.80-5.40) m/uL Hgb (11.4-16.0) gm/dL Hct (34.0-46.0) % MCV (80.0-100.0) fL MCH (25.0-35.0) pg MCHC (31.0-37.0) g/dL RDW (11.5-15.5) % Plt Count (150-450) k/uL MPV Neutrophils % % Lymphocytes % % Monocytes % % Eosinophils % % Basophils % % Neutrophils # (1.3-7.7) k/uL Lymphocytes # (1.0-4.8) k/uL Monocytes # (0-1.0) k/uL Eosinophils # (0-0.7) k/uL Basophils # (0-0.2) k/uL PT 10.4 (9.0-12.0) sec INR 1.0 (<1.2) Sodium 138 (137-145) mmol/L Potassium 4.2 (3.5-5.1) mmol/L Chloride 105 (98-107) mmol/L Carbon Dioxide 23 (22-30) mmol/L Anion Gap 10 mmol/L BUN 10 (7-17) mg/dL Creatinine 0.69 (0.52-1.04) mg/dL Est GFR (CKD-EPI)AfAm >90 (>60 ml/min/1.73 sqM) Est GFR (CKD-EPI)NonAf >90 (>60 ml/min/1.73 sqM) Glucose 98 (74-99) mg/dL Calcium 9.1 (8.4-10.2) mg/dL Total Bilirubin 0.6 (0.2-1.3) mg/dL AST 80 H (14-36) U/L ALT 120 H (4-34) U/L Alkaline Phosphatase 59 (38-126) U/L Troponin I <0.012 (0.000-0.034) ng/mL Total Protein 7.9 (6.3-8.2) g/dL Albumin 4.7 (3.5-5.0) g/dL HCG, Qual 10/04/22 10/04/22 Range/Units 16:23 16:45 WBC 6.5 (3.8-10.6) k/uL RBC 4.29 (3.80-5.40) m/uL Hgb 13.9 (11.4-16.0) gm/dL Hct 40.0 (34.0-46.0) % MCV 93.3 (80.0-100.0) fL MCH 32.5 (25.0-35.0) pg MCHC 34.9 (31.0-37.0) g/dL RDW 12.4 (11.5-15.5) % Plt Count 210 (150-450) k/uL MPV 8.6 Neutrophils % 52 % Lymphocytes % 39 % Monocytes % 6 % Eosinophils % 2 % Basophils % 1 % Neutrophils # 3.4 (1.3-7.7) k/uL Lymphocytes # 2.5 (1.0-4.8) k/uL Monocytes # 0.4 (0-1.0) k/uL Eosinophils # 0.1 (0-0.7) k/uL Basophils # 0.0 (0-0.2) k/uL PT (9.0-12.0) sec INR (<1.2) Sodium (137-145) mmol/L Potassium (3.5-5.1) mmol/L Chloride (98-107) mmol/L Carbon Dioxide (22-30) mmol/L Anion Gap mmol/L BUN (7-17) mg/dL Creatinine (0.52-1.04) mg/dL Est GFR (CKD-EPI)AfAm (>60 ml/min/1.73 sqM) Est GFR (CKD-EPI)NonAf (>60 ml/min/1.73 sqM) Glucose (74-99) mg/dL Calcium (8.4-10.2) mg/dL Total Bilirubin (0.2-1.3) mg/dL AST (14-36) U/L ALT (4-34) U/L Alkaline Phosphatase (38-126) U/L Troponin I (0.000-0.034) ng/mL Total Protein (6.3-8.2) g/dL Albumin (3.5-5.0) g/dL HCG, Qual Not Detected Disposition Clinical Impression: Vertigo Disposition: HOME SELF-CARE Condition: Good Instructions (If sedation given, give patient instructions): Vertigo (ED) Additional Instructions: Please try the canalith repositioning maneuver or Ne maneuver as discussed. Prescriptions: Meclizine [Antivert] 25 mg PO TID PRN #20 tab PRN Reason: Vertigo Is patient prescribed a controlled substance at d/c from ED?: No Referrals: Wei Lema MD [Primary Care Provider] - 1-2 days Mane Tolbert MD [STAFF PHYSICIAN] - 10/11/22 Time of Disposition: 20:28
[2022-10-04 20:55] VITALS: BP 130/60; PULSE 73; RESP 16
--- NOTE | 2022-10-04 22:49 | ED ---
Dizziness HPI - General Chief Complaint: Dizziness Stated Complaint: chest pain Time Seen by Provider: 10/04/22 17:32 Source: patient, family Mode of arrival: wheelchair Limitations: no limitations - History of Present Illness Initial Comments: This 32-year-old female presents with complaint of some dizziness. It started this morning. It is worse when she turns her head to the left. She states that it is a significant spinning type sensation. She denies any nausea or vomiting. She apparently has had occasional similar symptoms in the past. She denies any head trauma. She has occasional slight occipital headache. She had some numbness around her lips and into her hands. She denies any chest pain or shortness of breath. There is no ear pain, fullness, tinnitus, or hearing loss. She denies any fevers or chills. No other complaints or modifying factors. - Related Data Previous Rx's Medication Instructions Recorded Meclizine [Antivert] 25 mg PO TID PRN #20 tab 10/04/22 Allergies Allergy/AdvReac Type Severity Reaction Status Date / Time No Known Allergies Allergy Verified 10/04/22 16:17 Review of Systems ROS Statement: Those systems with pertinent positive or pertinent negative responses have been documented in the HPI. ROS Other: All systems not noted in ROS Statement are negative. 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 History of Any Multi-Drug Resistant Organisms: None Reported Additional Past Surgical History / Comment(s): left breast biopsy Past Anesthesia/Blood Transfusion Reactions: No Reported Reaction Past Psychological History: No Psychological Hx Reported Smoking Status: Never smoker Past Alcohol Use History: None Reported Past Drug Use History: Marijuana - Past Family History Mother Family Medical History: Hypertension, Thyroid Disorder Daughter(s) Additional Family Medical History / Comment(s): Cystic Fibrosis General Exam - General Exam Comments Initial Comments: GENERAL: The patient is well nourished and well hydrated. VITAL SIGNS: Heart rate, blood pressure, respiratory rate reviewed as recorded in nurse's notes. EYES: Pupils are round and reactive. Extraocular movements are intact. No conjunctival / lid redness or swelling. ENT: No external evidence of injury, swelling, or ecchymosis. Airway is patent. Throat is clear. Tympanic membranes are clear bilaterally. NECK: Nontender. No swelling or evidence of injury. No subcutaneous emphysema. Trachea is midline. No thyroid mass. HEART: Regular rate and rhythm. Good peripheral pulses. LUNGS/CHEST: Breath sounds clear and equal bilaterally. No rales, rhonchi, or wheezes. No ecchymosis, subcutaneous emphysema, or tenderness. ABDOMEN: Abdomen soft without tenderness. No palpable masses or organomegaly. No peritoneal signs. No abdominal wall swelling or ecchymosis. EXTREMITIES: No extremity tenderness. Normal muscle tone and function. No thoracolumbar tenderness. NEUROLOGIC: Sensation is grossly intact. Cranial nerve exam reveals face is symmetrical, tongue is midline, speech is clear. SKIN: No abrasions or ecchymosis is noted. No induration or masses noted. PSYCHIATRIC: Alert and oriented. Appropriate behavior and judgment. Limitations: no limitations Course Vital Signs 10/04/22 10/04/22 10/04/22 15:47 15:50 16:00 Temperature 98.5 F Pulse Rate 75 89 Respiratory 20 Rate Blood Pressure 175/100 175/100 153/87 O2 Sat by Pulse 99 99 97 Oximetry 10/04/22 10/04/22 10/04/22 16:10 16:13 16:20 Temperature Pulse Rate 70 71 65 Respiratory 20 Rate Blood Pressure 171/100 155/102 155/102 O2 Sat by Pulse 96 99 100 Oximetry 10/04/22 10/04/22 10/04/22 16:30 16:40 16:50 Temperature Pulse Rate 74 81 66 Respiratory Rate Blood Pressure 155/102 137/101 137/101 O2 Sat by Pulse 99 100 100 Oximetry 10/04/22 10/04/22 10/04/22 17:00 17:10 17:20 Temperature Pulse Rate 69 71 66 Respiratory 20 Rate Blood Pressure 137/101 147/87 147/87 O2 Sat by Pulse 99 98 97 Oximetry 10/04/22 10/04/22 10/04/22 17:30 17:40 17:50 Temperature Pulse Rate 67 64 Respiratory Rate Blood Pressure 147/87 133/78 133/78 O2 Sat by Pulse 99 99 Oximetry 10/04/22 10/04/22 10/04/22 18:00 18:10 18:20 Temperature Pulse Rate 62 64 Respiratory Rate Blood Pressure 133/78 131/87 131/87 O2 Sat by Pulse 98 100 Oximetry 10/04/22 10/04/22 10/04/22 18:30 18:40 18:50 Temperature Pulse Rate 67 67 63 Respiratory Rate Blood Pressure 131/87 125/91 125/91 O2 Sat by Pulse 98 100 99 Oximetry 10/04/22 10/04/22 10/04/22 19:00 19:10 19:20 Temperature Pulse Rate 57 L 59 L 61 Respiratory 20 Rate Blood Pressure 125/91 136/87 136/87 O2 Sat by Pulse 99 99 100 Oximetry 10/04/22 10/04/22 19:30 20:54 Temperature Pulse Rate 63 73 Respiratory 16 Rate Blood Pressure 136/87 130/60 O2 Sat by Pulse 99 98 Oximetry Medical Decision Making - Medical Decision Making The patient was seen and examined. All diagnostics are reviewed. She does have a computed tomography scan of the brain which does not show any acute abnormalities per radiology. The EKG shows a normal sinus rhythm at a rate of 72. There is no acute ST or T wave changes noted per my interpretation. The intervals are normal. The laboratory does not show any acute abnormalities. IV is established patient does receive Ativan to venous leak. She also receives Antivert orally. She is feeling significantly improved on recheck. This felt as though her symptomatology likely is related to a benign positional vertigo. It is felt as though she is stable for discharge home. Canalith repositioning maneuvers discussed and she is to attempt this at home. Antivert as prescribed. ENT referral is given in case symptoms do persist. Close follow up with primary care recommended. Return parameters are discussed. Was pt. sent in by a medical professional or institution (, PA, HORTICULTURE SUPERINTENDENT, urgent care, hospital, or group home...) When possible be specific @ -[No] Did you speak to anyone other than the patient for history (EMS, parent, family, police, friend...)? What history was obtained from this source @ -Case is discussed with mother who is present as well and she gives additional history. Did you review nursing and triage notes (agree or disagree)? Why? @ -[I reviewed and agree with nursing and triage notes] Were old charts reviewed (outside hosp., previous admission, EMS record, old EKG, old radiological studies, urgent care reports/EKG's, group home records)? Report findings @ -Old records are reviewed. Differential Diagnosis (chest pain, altered mental status, abdominal pain women, abdominal pain men, vaginal bleeding, weakness, fever, dyspnea, syncope, headache, dizziness, GI bleed, back pain, seizure, CVA, palpatations, mental health, musculoskeletal)? @ -Viral labyrinthitis, vestibular neuronitis, migraine years disease, benign positional vertigo EKG interpreted by me (3pts min.). @ -[As above] X-rays interpreted by me (1pt min.). @ -[None done] CT interpreted by me (1pt min.). @ -80s interpreted by radiologist. U/S interpreted by me (1pt. min.). @ -[None done] What testing was considered but not performed or refused? (CT, X-rays, U/S, labs)? Why? @ -[None] What meds were considered but not given or refused? Why? @ -[None] Did you discuss the management of the patient with other professionals (professionals i.e. , PA, HORTICULTURE SUPERINTENDENT, lab, RT, psych nurse, social media analyst, pastoral assistant, teacher, collection officer, family independence case manager)? Give summary @ -[No] Was smoking cessation discussed for >3mins.? @ -[No] Was critical care preformed (if so, how long)? @ -[No] Were there social determinants of health that impacted care today? How? (Homelessness, low income, unemployed, alcoholism, drug addiction, transportation, low edu. Level, literacy, decrease access to med. care, care home, rehab)? @ -[No] Was there de-escalation of care discussed even if they declined (Discuss DNR or withdrawal of care, Hospice)? DNR status @ -[No] What co-morbidities impacted this encounter? (DM, HTN, Smoking, COPD, CAD, Cancer, CVA, ARF, Chemo, Hep., AIDS, mental health diagnosis, sleep apnea, morbid obesity)? @ -Vit obesity Was patient admitted / discharged? Hospital course, mention meds given and route, prescriptions, significant lab abnormalities, going to OR and other pert inent info. @ -Patient is discharged. Undiagnosed new problem with uncertain prognosis? @ -[No] Drug Therapy requiring intensive monitoring for toxicity (Heparin, Nitro, Insulin, Cardizem)? @ -[No] Were any procedures done? @ -[No] Diagnosis/symptom? @ -Vertigo, likely benign positional vertigo Acute, or Chronic, or Acute on Chronic? @ -Acute Uncomplicated (without systemic symptoms) or Complicated (systemic symptoms)? @ -Uncomplicated Side effects of treatment? @ -[No] Exacerbation, Progression, or Severe Exacerbation? @ -[No] Poses a threat to life or bodily function? How? (Chest pain, [place], [place], pneumonia, PE, COPD, DKA, ARF, appy, cholecystitis, CVA, Diverticulitis, Homicidal, Suicidal, threat to staff... and all critical care pts) @ -[No] - Lab Data Result diagrams: 10/04/22 16:45 10/04/22 16:17 Lab Results 10/04/22 10/04/22 10/04/22 Range/Units 16:17 16:17 16:17 WBC (3.8-10.6) k/uL RBC (3.80-5.40) m/uL Hgb (11.4-16.0) gm/dL Hct (34.0-46.0) % MCV (80.0-100.0) fL MCH (25.0-35.0) pg MCHC (31.0-37.0) g/dL RDW (11.5-15.5) % Plt Count (150-450) k/uL MPV Neutrophils % % Lymphocytes % % Monocytes % % Eosinophils % % Basophils % % Neutrophils # (1.3-7.7) k/uL Lymphocytes # (1.0-4.8) k/uL Monocytes # (0-1.0) k/uL Eosinophils # (0-0.7) k/uL Basophils # (0-0.2) k/uL PT 10.4 (9.0-12.0) sec INR 1.0 (<1.2) Sodium 138 (137-145) mmol/L Potassium 4.2 (3.5-5.1) mmol/L Chloride 105 (98-107) mmol/L Carbon Dioxide 23 (22-30) mmol/L Anion Gap 10 mmol/L BUN 10 (7-17) mg/dL Creatinine 0.69 (0.52-1.04) mg/dL Est GFR (CKD-EPI)AfAm >90 (>60 ml/min/1.73 sqM) Est GFR (CKD-EPI)NonAf >90 (>60 ml/min/1.73 sqM) Glucose 98 (74-99) mg/dL Calcium 9.1 (8.4-10.2) mg/dL Total Bilirubin 0.6 (0.2-1.3) mg/dL AST 80 H (14-36) U/L ALT 120 H (4-34) U/L Alkaline Phosphatase 59 (38-126) U/L Troponin I <0.012 (0.000-0.034) ng/mL Total Protein 7.9 (6.3-8.2) g/dL Albumin 4.7 (3.5-5.0) g/dL HCG, Qual 10/04/22 10/04/22 Range/Units 16:23 16:45 WBC 6.5 (3.8-10.6) k/uL RBC 4.29 (3.80-5.40) m/uL Hgb 13.9 (11.4-16.0) gm/dL Hct 40.0 (34.0-46.0) % MCV 93.3 (80.0-100.0) fL MCH 32.5 (25.0-35.0) pg MCHC 34.9 (31.0-37.0) g/dL RDW 12.4 (11.5-15.5) % Plt Count 210 (150-450) k/uL MPV 8.6 Neutrophils % 52 % Lymphocytes % 39 % Monocytes % 6 % Eosinophils % 2 % Basophils % 1 % Neutrophils # 3.4 (1.3-7.7) k/uL Lymphocytes # 2.5 (1.0-4.8) k/uL Monocytes # 0.4 (0-1.0) k/uL Eosinophils # 0.1 (0-0.7) k/uL Basophils # 0.0 (0-0.2) k/uL PT (9.0-12.0) sec INR (<1.2) Sodium (137-145) mmol/L Potassium (3.5-5.1) mmol/L Chloride (98-107) mmol/L Carbon Dioxide (22-30) mmol/L Anion Gap mmol/L BUN (7-17) mg/dL Creatinine (0.52-1.04) mg/dL Est GFR (CKD-EPI)AfAm (>60 ml/min/1.73 sqM) Est GFR (CKD-EPI)NonAf (>60 ml/min/1.73 sqM) Glucose (74-99) mg/dL Calcium (8.4-10.2) mg/dL Total Bilirubin (0.2-1.3) mg/dL AST (14-36) U/L ALT (4-34) U/L Alkaline Phosphatase (38-126) U/L Troponin I (0.000-0.034) ng/mL Total Protein (6.3-8.2) g/dL Albumin (3.5-5.0) g/dL HCG, Qual Not Detected Disposition Clinical Impression: Vertigo Disposition: HOME SELF-CARE Condition: Good Instructions (If sedation given, give patient instructions): Vertigo (ED) Additional Instructions: Please try the canalith repositioning maneuver or Ne maneuver as discussed. Prescriptions: Meclizine [Antivert] 25 mg PO TID PRN #20 tab PRN Reason: Vertigo Is patient prescribed a controlled substance at d/c from ED?: No Referrals: Wei Lema MD [Primary Care Provider] - 1-2 days Mane Tolbert MD [STAFF PHYSICIAN] - 10/11/22
== END 2022-10-04 20:55 | disposition home or self-care (01) ==
LOC: EC 15:35
DX: R42 Dizziness and giddiness (principal); J45.909 Unspecified asthma, uncomplicated; F12.90 Cannabis use, unspecified, uncomplicated
CPT/HCPCS: 93005; 80053; 84484; 85025; 85610; 84703; 70450; 99284; 96374; 96361 ×3; J2060; 36415

== ENCOUNTER 2024-01-29 06:03 | Day surgery (SDC) | payer BC, OTHER ==
[2024-01-29 06:35] VITALS: TEMP 97.6
[2024-01-29] MEDS: IV FLUID CONTINUATION 1,000 ML IV ONE (06:43)
[2024-01-29] MEDS: LACTATED RINGERS 1,000 ML IV SCH (06:44)
[2024-01-29] MEDS ORDERED: PROPOFOL 10 MG/ML 20 ML VIAL IV ONE (06:59)
[2024-01-29] MEDS ORDERED: LIDOCAINE 2% (PF) 20 MG/ML 5 ML VIAL ONE (06:59)
--- NOTE | 2024-01-29 07:21 | P.PCN ---
Date of Procedure: 01/29/24 Procedure(s) Performed: Brief history: Patient is a pleasant 33-year-old white female scheduled for an elective upper endoscopy as well as colonoscopy as a part of evaluation of abdominal pain, intermittent nausea vomiting and change in bowel habits for the last 1 year duration Procedure performed: Esophagogastroduodenoscopy with biopsy Colonoscopy with biopsy Preoperative diagnosis: Abdominal pain/intermittent nausea vomiting Change in bowel habits Anesthesia: MAC Procedure: After informed consent was obtained from the patient was brought into the endoscopy unit and IV sedation was administered by anesthesia under continuous monitoring. Initially upper endoscopy was done. The Olympus GF 160 video endoscope was inserted inserted into the mouth and esophagus intubated without any difficulty and was gradually advanced into the stomach and duodenum and carefully examined. The bulb and second part of the duodenum appeared normal. Apices were done from the duodenum rule out celiac disease. Biopsies were done from the duodenum rule out celiac disease. The scope was then withdrawn into the stomach adequately insufflated with air and upon careful examination the antrum had mild gastritis and biopsies were done from this area. Mucosa body, cardia and fundus appeared normal. The scope was then withdrawn into the esophagus. The GE junction was located at 40 cm to the incisors. It appeared regular with no erythema erosions or ulcerations. Rest of the esophagus appeared normal. Biopsies were done from the mid and distal esophagus. Patient tolerated the procedure well. At this time the patient continued to remain sedation. Initial digital rectal examination was normal. Olympus CF 160 video colonoscope was then inserted into the rectum and gradually advanced to the cecum without any difficulty. Careful examination was performed as the scope was gradually being withdrawn. The prep was excellent. Ileum was intubated in 20 cm visualized and appeared normal. The cecum, appeared normal. Descending colon there was a 3 mm polyp that was removed by cold biopsy. Rest of the ascending colon, transverse colon, descending colon, sigmoid colon and rectum appeared normal. Retroflexion was performed in the rectum and no lesions were noted. Patient tolerated the proce dure well. Impression: 1. Upper endoscopy revealed mild antral gastritis but no active esophagitis or peptic ulcer disease 2. Colonoscopy revealed 3 mm ascending colon polyp status post cold biopsy and rest of the colon appeared normal Recommendations: Findings of this examination were discussed with the patient as well as her family. She was advised to follow with the biopsy results. Follow-up in the office in 2 weeks.
[2024-01-29 07:58] VITALS: BP 133/85; PULSE 66; RESP 18
== END 2024-01-29 08:31 | disposition home or self-care (01) ==
LOC: ORWHC2ENDO 06:03
PROVIDERS: ATTEND Internal Medicine Gastroenterology
DX: K29.50 Unspecified chronic gastritis without bleeding (principal); D12.2 Benign neoplasm of ascending colon; J45.909 Unspecified asthma, uncomplicated; E03.9 Hypothyroidism, unspecified; K21.9 Gastro-esophageal reflux disease without esophagitis; R47.1 Dysarthria and anarthria; L23.1 Allergic contact dermatitis due to adhesives; Z79.899 Other long term (current) drug therapy; Z79.890 Hormone replacement therapy; Z79.51 Long term (current) use of inhaled steroids
CPT/HCPCS: 81025; 45380; 43239; J2704; J2003; 88305

== ENCOUNTER 2024-07-10 23:34 | Emergency (ER) | payer OTHER ==
[2024-07-10 23:50] VITALS: RESP 16
[2024-07-11] MEDS: SODIUM CHLORIDE 0.9% 1,000 ML IV STA (00:15)
[2024-07-11 00:18] LABS: Basophils # (A) 0.11 10*3/uL (0.00-0.10); Basophils % (A) 1.3 %; Eosinophils # (A) 0.12 10*3/uL (0.04-0.35); Eosinophils % (A) 1.4 %; HCT 40.9 % (37.2-46.3); HGB 14.3 g/dL (12.0-15.0); MCH 32.4 pg (27.0-32.0); MCV 92.5 fL (80.0-97.0); Mean Platelet Volume 11.8 fL (9.5-12.2); Monocytes # (A) 0.68 10*3/uL (0.20-1.00); Neutrophils # (A) 4.75 10*3/uL (1.80-7.70); Neutrophils % (A) 56.1 %; Platelet Count 232 10*3/uL (140-440); RBC 4.42 10*6/uL (4.10-5.20); WBC 8.48 10*3/uL (4.50-10.00)
[2024-07-11 00:35] LABS: Prothrombin Time 10.8 sec (10.0-12.5)
[2024-07-11 00:39] LABS: HCG,Qualitative Serum Not Detected
[2024-07-11 00:40] LABS: ALT 18 U/L (4-34); AST 23 U/L (14-36); African American GFR (CKD) >90 (>60 ml/min/1.73 sqM); Albumin 4.3 g/dL (3.5-5.0); Alkaline Phosphatase 41 U/L (38-126); Anion Gap 12 mmol/L; Blood Urea Nitrogen 8 mg/dL (7-17); Calcium 9.1 mg/dL (8.4-10.2); Carbon Dioxide 19 mmol/L (22-30); Chloride 104 mmol/L (98-107); Glucose 103 mg/dL (74-99); Magnesium 2.2 mg/dL (1.6-2.3); Non-African American GFR(CKD) >90 (>60 ml/min/1.73 sqM); Partial Thromboplastin Time 21.8 sec (22.0-30.0); Potassium 3.1 mmol/L (3.5-5.1); Sodium 135 mmol/L (137-145); Total Bilirubin 0.4 mg/dL (0.2-1.3); Total Protein 6.9 g/dL (6.3-8.2)
[2024-07-11] MEDS: ACETAMINOPHEN TAB 325 MG TAB PO STA (01:12)
[2024-07-11] MEDS: POTASSIUM CHLORIDE ER 20 MEQ TAB.ER PO STA (01:12)
--- NOTE | 2024-07-11 01:34 | ED ---
Dizziness HPI - General Chief Complaint: Syncope Stated Complaint: Syncope Time Seen by Provider: 07/10/24 23:45 Source: patient Mode of arrival: EMS Limitations: no limitations - History of Present Illness Initial Comments: 34-year-old female presenting for evaluation post syncopal episode. Patient was at the bar this evening when this happened. She reports that she was starting to feel lightheaded, she had ringing in her ears and tunnel vision. She does not remember passing out was told that she passed up her boyfriend. She did hit her head. No blood thinners. She reports that earlier today she did have some marijuana edibles totaling about 100 mg of THC. She did also smoke a joint tonight. She had a drink and a half while at the bar. She reports that she ate lunch around 2 PM but has not eaten since. She feels fine at this time. She does have a bit of a headache. No nausea vomiting or abdominal pain. No chest pain or difficulty breathing. No family history of sudden cardiac . - Related Data Home Medications Medication Instructions Recorded Confirmed Albuterol Inhaler [Ventolin Hfa 2 inh INHALATION QID PRN 01/27/24 01/29/24 Inhaler] Cholecalciferol [Vitamin D3 (125 3 tab PO DAILY 01/27/24 01/29/24 Mcg = 5000 Iu)] Dicyclomine [Bentyl] 10 mg PO TID PRN 01/27/24 01/29/24 Levothyroxine Sodium 100 mcg PO DAILY 01/27/24 01/29/24 Omeprazole 20 mg PO DAILY 01/27/24 01/29/24 Allergies Allergy/AdvReac Type Severity Reaction Status Date / Time adhesive tape Allergy Itching Verified 01/29/24 06:27 Review of Systems ROS Statement: Those systems with pertinent positive or pertinent negative responses have been documented in the HPI. ROS Other: All systems not noted in ROS Statement are negative. Past Medical History Past Medical History: Asthma, Thyroid Disorder Additional Past Medical History / Comment(s): Hashimotos hypothyroid, vomiting & stomach cramping/pain since 2021, increased in severity 2023 History of Any Multi-Drug Resistant Organisms: None Reported Additional Past Surgical History / Comment(s): left breast biopsy, EGD Past Anesthesia/Blood Transfusion Reactions: No Reported Reaction Past Psychological History: Anxiety, Depression Smoking Status: Current every day smoker Past Alcohol Use History: Occasional Past Drug Use History: Marijuana - Past Family History Mother Family Medical History: Hypertension, Thyroid Disorder Additional Family Medical History / Comment(s): Jony's, Raynaud's, RA, Sy stemic Lupus, Irregular heart rate Daughter(s) Additional Family Medical History / Comment(s): Cystic Fibrosis Father Family Medical History: Diabetes Mellitus, Hyperlipidemia Additional Family Medical History / Comment(s): colitis Brother(s) Additional Family Medical History / Comment(s): Crohn's Disease General Exam Limitations: no limitations General appearance: alert, in no apparent distress Head exam: Present: normocephalic Expanded Head exam: Present: hematoma (Small bump to the forehead) Eye exam: Present: normal appearance, PERRL, EOMI. Absent: periorbital swelling Pupils: Present: normal accommodation Neck exam: Present: normal inspection. Absent: meningismus Respiratory exam: Present: normal lung sounds bilaterally. Absent: respiratory distress, wheezes, rales, rhonchi, stridor Cardiovascular Exam: Present: regular rate, normal rhythm, normal heart sounds. Absent: systolic murmur, diastolic murmur, rubs, gallop, clicks Extremities exam: Absent: pedal edema Neurological exam: Present: alert, oriented X3 Psychiatric exam: Present: normal affect, normal mood Skin exam: Present: warm, dry, normal color Course Vital Signs 07/10/24 07/11/24 07/11/24 23:36 01:14 02:07 Temperature 98.5 F Pulse Rate 81 79 77 Respiratory 16 16 16 Rate Blood Pressure 122/74 126/80 120/68 O2 Sat by Pulse 96 97 95 Oximetry 07/11/24 02:54 Temperature 97.5 F L Pulse Rate 67 Respiratory 16 Rate Blood Pressure 122/83 O2 Sat by Pulse 96 Oximetry Medical Decision Making - Medical Decision Making Was pt. sent in by a medical professional or institution (, PA, LEAD DEVELOPER, urgent care, hospital, or fdc...) When possible be specific @ -No Did you speak to anyone other than the patient for history (EMS, parent, family, police, friend...)? What history was obtained from this source @ -No Did you review nursing and triage notes (agree or disagree)? Why? @ -I reviewed and agree with nursing and triage notes Were old charts reviewed (outside hosp., previous admission, EMS record, old EKG, old radiological studies, urgent care reports/EKG's, fdc records)? Report findings @ -No old charts were reviewed Differential Diagnosis (chest pain, altered mental status, abdominal pain women, abdominal pain men, vaginal bleeding, weakness, fever, dyspnea, syncope, headache, dizziness, GI bleed, back pain, seizure, CVA, palpatations, mental health, musculoskeletal)? @ -MDM Differential Syncope: Valvular disease, hypertrophic cardiomyopathy, pulmonary embolism, tamponade, tachycardia, bradycardia, NJ, hypovolemia, hemorrhage, dissection, anemia, intracranial hemorrhage, seizure, hypoglycemia, carbon monoxide poisoning… this is not meant to be an all-inclusive list. EKG interpreted by me (3pts min.). @ -EKG shows sinus rhythm ventricular rate 70. W[place] interval 189. QRS 93. QT 379. QTc 400 X-rays interpreted by me (1pt min.). @ -Chest x-ray shows no acute process CT interpreted by me (1pt min.). @ -Brain and cervical spine CT shows no acute process U/S interpreted by me (1pt. min.). @ -None done What testing was considered but not performed or refused? (CT, X-rays, U/S, labs)? Why? @ -None What meds were considered but not given or refused? Why? @ -None Did you discuss the management of the patient with other professionals (professionals i.e. , PA, LEAD DEVELOPER, lab, RT, psych nurse, child welfare social worker, daycare assistant, teacher, water resources technical officer, manager case)? Give summary @ -No Was smoking cessation discussed for >3mins.? @ -No Was critical care preformed (if so, how long)? @ -No Were there social determinants of health that impacted care today? How? (Homel essness, low income, unemployed, alcoholism, drug addiction, transportation, low edu. Level, literacy, decrease access to med. care, care home, rehab)? @ -No Was there de-escalation of care discussed even if they declined (Discuss DNR or withdrawal of care, Hospice)? DNR status @ -No What co-morbidities impacted this encounter? (DM, HTN, Smoking, COPD, CAD, Cancer, CVA, ARF, Chemo, Hep., AIDS, mental health diagnosis, sleep apnea, morbid obesity)? @ -None Was patient admitted / discharged? Hospital course, mention meds given and route, prescriptions, significant lab abnormalities, going to OR and other pertinent info. @ -34-year-old female presenting after syncopal episode. Patient was at the bar this evening when this happened after about a drink and a half. She did also have some marijuana earlier today. She has not eaten much today. History and physical examination are conducted. No focal neurological deficits, GCS is 15. Potassium 3.1, patient is receiving oral potassium replacement. Negative hCG. No acute process seen on chest x-ray and brain CT. EKG shows sinus rhythm. On reassessment the patient is resting comfortably showing no acute signs of distress. She reports that she is hungry. She is educated on today's findings. Follow-up with PCP. Report back to ER with any new or worsening symptoms. Discussed return parameters and answered all questions. Patient conveyed verbal understanding and agreed to the plan. I discussed this case in detail with my attending Dr. Collins Undiagnosed new problem with uncertain prognosis? @ -No Drug Therapy requiring intensive monitoring for toxicity (Heparin, Nitro, Insulin, Cardizem)? @ -No Were any procedures done? @ -No Diagnosis/symptom? @ -Syncope, hypokalemia Acute, or Chronic, or Acute on Chronic? @ -Acute Uncomplicated (without systemic symptoms) or Complicated (systemic symptoms)? @ -Uncomplicated Side effects of treatment? @ -No Exacerbation, Progression, or Severe Exacerbation? @ -No Poses a threat to life or bodily function? How? (Chest pain, USA, NJ, pneumonia, PE, COPD, DKA, ARF, appy, cholecystitis, CVA, Diverticulitis, Homicidal, Suicidal, threat to staff... and all critical care pts) @ -Unlikely - Lab Data Result diagrams: 07/11/24 00:04 07/11/24 00:04 Lab Results 07/11/24 07/11/24 07/11/24 Range/Units 00:04 00:04 00:04 WBC 8.48 (4.50-10.00) 10*3/uL RBC 4.42 (4.10-5.20) 10*6/uL Hgb 14.3 (12.0-15.0) g/dL Hct 40.9 (37.2-46.3) % MCV 92.5 (80.0-97.0) fL MCH 32.4 H (27.0-32.0) pg MCHC 35.0 (32.0-37.0) g/dL Plt Count 232 (140-440) 10*3/uL MPV 11.8 (9.5-12.2) fL Immature Gran % (Auto) 0.2 % Neutrophils % 56.1 % Lymphocytes % 33.0 % Monocytes % 8.0 % Eosinophils % 1.4 % Basophils % 1.3 % Immature Gran # 0.02 (0.00-0.04) 10*3/uL Neutrophils # 4.75 (1.80-7.70) 10*3/uL Lymphocytes # 2.80 (0.90-5.00) 10*3/uL Monocytes # 0.68 (0.20-1.00) 10*3/uL Eosinophils # 0.12 (0.04-0.35) 10*3/uL Basophils # 0.11 H (0.00-0.10) 10*3/uL PT 10.8 (10.0-12.5) sec INR 1.0 (<1.2) APTT 21.8 L (22.0-30.0) sec Sodium 135 L (137-145) mmol/L Potassium 3.1 L (3.5-5.1) mmol/L Chloride 104 (98-107) mmol/L Carbon Dioxide 19 L (22-30) mmol/L Anion Gap 12 mmol/L BUN 8 (7-17) mg/dL Creatinine 0.57 (0.52-1.04) mg/dL Est GFR (CKD-EPI)AfAm >90 (>60 ml/min/1.73 sqM) Est GFR (CKD-EPI)NonAf >90 (>60 ml/min/1.73 sqM) Glucose 103 H (74-99) mg/dL Calcium 9.1 (8.4-10.2) mg/dL Magnesium 2.2 (1.6-2.3) mg/dL Total Bilirubin 0.4 (0.2-1.3) mg/dL AST 23 (14-36) U/L ALT 18 (4-34) U/L Alkaline Phosphatase 41 (38-126) U/L Troponin I (0.000-0.034) ng/mL Total Protein 6.9 (6.3-8.2) g/dL Albumin 4.3 (3.5-5.0) g/dL HCG, Qual Not Detected Urine Color Urine Appearance (Clear) Urine pH (5.0-8.0) Ur Specific [place] (1.001-1.035) Urine Protein (Negative) Urine Glucose (UA) (Negative) Urine Ketones (Negative) Urine Blood (Negative) Urine Nitrite (Negative) Urine Bilirubin (Negative) Urine Urobilinogen (<2.0) mg/dL Ur Leukocyte Esterase (Negative) 07/11/24 07/11/24 Range/Units 00:04 01:30 WBC (4.50-10.00) 10*3/uL RBC (4.10-5.20) 10*6/uL Hgb (12.0-15.0) g/dL Hct (37.2-46.3) % MCV (80.0-97.0) fL MCH (27.0-32.0) pg MCHC (32.0-37.0) g/dL Plt Count (140-440) 10*3/uL MPV (9.5-12.2) fL Immature Gran % (Auto) % Neutrophils % % Lymphocytes % % Monocytes % % Eosinophils % % Basophils % % Immature Gran # (0.00-0.04) 10*3/uL Neutrophils # (1.80-7.70) 10*3/uL Lymphocytes # (0.90-5.00) 10*3/uL Monocytes # (0.20-1.00) 10*3/uL Eosinophils # (0.04-0.35) 10*3/uL Basophils # (0.00-0.10) 10*3/uL PT (10.0-12.5) sec INR (<1.2) APTT (22.0-30.0) sec Sodium (137-145) mmol/L Potassium (3.5-5.1) mmol/L Chloride (98-107) mmol/L Carbon Dioxide (22-30) mmol/L Anion Gap mmol/L BUN (7-17) mg/dL Creatinine (0.52-1.04) mg/dL Est GFR (CKD-EPI)AfAm (>60 ml/min/1.73 sqM) Est GFR (CKD-EPI)NonAf (>60 ml/min/1.73 sqM) Glucose (74-99) mg/dL Calcium (8.4-10.2) mg/dL Magnesium (1.6-2.3) mg/dL Total Bilirubin (0.2-1.3) mg/dL AST (14-36) U/L ALT (4-34) U/L Alkaline Phosphatase (38-126) U/L Troponin I <0.012 (0.000-0.034) ng/mL Total Protein (6.3-8.2) g/dL Albumin (3.5-5.0) g/dL HCG, Qual Urine Color Colorless Urine Appearance Clear (Clear) Urine pH 7.0 (5.0-8.0) Ur Specific [place] 1.002 (1.001-1.035) Urine Protein Negative (Negative) Urine Glucose (UA) Negative (Negative) Urine Ketones Negative (Negative) Urine Blood Negative (Negative) Urine Nitrite Negative (Negative) Urine Bilirubin Negative (Negative) Urine Urobilinogen <2.0 (<2.0) mg/dL Ur Leukocyte Esterase Negative (Negative) Disposition Clinical Impression: Syncope, Hypokalemia Disposition: HOME SELF-CARE Condition: Good Instructions (If sedation given, give patient instructions): Hypokalemia (ED), Syncope (ED) Additional Instructions: Follow-up with PCP. Report back to ER with any new or worsening symptoms. Is patient prescribed a controlled substance at d/c from ED?: No Referrals: Wei Lema MD [Primary Care Provider] - 1-2 days Time of Disposition: 02:50
[2024-07-11 01:42] LABS: Appearance,Urine Clear (Clear); Bilirubin,Urine Negative (Negative); Blood,Urine Negative (Negative); Color,Urine Colorless; Glucose,Urine (UA) Negative (Negative); Ketones,Urine Negative (Negative); Leukocyte Esterase,Urine Negative (Negative); Nitrite,Urine Negative (Negative); Protein,Urine Negative (Negative); Specific Gravity,Urine 1.002 (1.001-1.035); Urobilinogen,Urine <2.0 mg/dL (<2.0)
--- NOTE | 2024-07-11 02:15 | CT ---
EXAM: CT Head Without Intravenous Contrast CLINICAL HISTORY: ITS.REASON CT Reason: syncope TECHNIQUE: Axial computed tomography images of the head/brain without intravenous contrast. CTDI is 45.3 mGy and DLP is 1115 mGy-cm. This CT exam was performed using one or more of the following dose reduction techniques: automated exposure control, adjustment of the mA and/or kV according to patient size, and/or use of iterative reconstruction technique. COMPARISON: No relevant prior studies available. FINDINGS: Brain: No hemorrhage or mass effect. Ventricles: No hydrocephalus. Bones/joints: Unremarkable. Soft tissues: Unremarkable. Sinuses: No air fluid level. Mastoid air cells: Clear. IMPRESSION: No acute hemorrhage, hydrocephalus, or mass effect. EXAM: CT Cervical Spine Without Intravenous Contrast CLINICAL HISTORY: ITS.REASON CT Reason: syncope TECHNIQUE: Axial computed tomography images of the cervical spine without intravenous contrast. CTDI is 14.4 mGy and DLP is 457.6 mGy-cm. This CT exam was performed using one or more of the following dose reduction techniques: automated exposure control, adjustment of the mA and/or kV according to patient size, and/or use of iterative reconstruction technique. COMPARISON: No relevant prior studies available. FINDINGS: Vertebrae: No acute fracture. Discs/spinal canal/neural foramina: No significant degenerative changes. Soft tissues: No prevertebral swelling. IMPRESSION: No acute fracture or subluxation.
--- NOTE | 2024-07-11 02:27 | XR ---
EXAM: XR Chest, 2 Views CLINICAL HISTORY: ITS.REASON XR Reason: syncope TECHNIQUE: Frontal and lateral views of the chest. COMPARISON: No relevant prior studies available. FINDINGS: Lungs: No consolidation or mass. Pleural space: No effusion. Heart: No cardiomegaly. Bones/joints: No acute findings. IMPRESSION: No acute cardiopulmonary process.
[2024-07-11 02:55] VITALS: BP 122/83; PULSE 67; TEMP 97.5
== END 2024-07-11 02:55 | disposition home or self-care (01) ==
LOC: EC 23:34
DX: S00.03XA Contusion of scalp, initial encounter (principal); R55 Syncope and collapse; E87.6 Hypokalemia; F17.200 Nicotine dependence, unspecified, uncomplicated; Z91.09 Other allergy status, other than to drugs and biological substances; W19.XXXA Unspecified fall, initial encounter
CPT/HCPCS: 36415; 93005; 80053; 83735; 84484; 85025; 85610; 85730; 81003; 84703; 71046; 72125; 70450; 99285; 96360; 96361; Q9967

== ENCOUNTER 2024-09-10 12:34 | Emergency (ER) | payer OTHER ==
[2024-09-10 12:40] VITALS: BP 155/94; PULSE 65; RESP 20; TEMP 97.8
[2024-09-10 13:47] LABS: Basophils # (A) 0.06 10*3/uL (0.00-0.10); Basophils % (A) 0.9 %; Eosinophils # (A) 0.05 10*3/uL (0.04-0.35); Eosinophils % (A) 0.7 %; HCT 40.7 % (37.2-46.3); HGB 14.1 g/dL (12.0-15.0); Lymphocytes # (A) 1.95 10*3/uL (0.90-5.00); Lymphocytes % (A) 28.4 %; MCH 31.8 pg (27.0-32.0); MCHC 34.6 g/dL (32.0-37.0); MCV 91.9 fL (80.0-97.0); Mean Platelet Volume 11.1 fL (9.5-12.2); Monocytes # (A) 0.58 10*3/uL (0.20-1.00); Monocytes % (A) 8.5 %; Neutrophils # (A) 4.21 10*3/uL (1.80-7.70); Neutrophils % (A) 61.4 %; Platelet Count 268 10*3/uL (140-440); RBC 4.43 10*6/uL (4.10-5.20); RDW 12.7 % (11.5-14.5); WBC 6.86 10*3/uL (4.50-10.00)
[2024-09-10 13:58] LABS: ALT 13 U/L (4-34); AST 19 U/L (14-36); African American GFR (CKD) >90 (>60 ml/min/1.73 sqM); Albumin 4.2 g/dL (3.5-5.0); Alkaline Phosphatase 42 U/L (38-126); Anion Gap 8 mmol/L; Blood Urea Nitrogen 9 mg/dL (7-17); Calcium 9.7 mg/dL (8.4-10.2); Carbon Dioxide 23 mmol/L (22-30); Chloride 104 mmol/L (98-107); Glucose 100 mg/dL (74-99); Non-African American GFR(CKD) >90 (>60 ml/min/1.73 sqM); Potassium 4.3 mmol/L (3.5-5.1); Sodium 135 mmol/L (137-145); Total Bilirubin 0.5 mg/dL (0.2-1.3)
--- NOTE | 2024-09-10 14:56 | US ---
EXAMINATION TYPE: Transabdominal DATE OF EXAM: 09/10/2024 2:36 PM COMPARISON: NONE CLINICAL INDICATION: Female, 34 years old with history of 8 weeks , fall, now bleeding; Pt st ates cramping and light spotting after falling down stairs a couple of days ago TECHNIQUE: Transabdominal (TA) with grayscale and color Doppler imaging including first trimester pre gnancy. FINDINGS: EXAM MEASUREMENTS: GESTATIONAL AGE / DATING Physician Established: Not yet established Dates by LMP: (8 weeks/2 days) EDC: 04/20/2025 Dates by First Scan: No previous this is first scan Dates by Current Scan for: (7 weeks/4 days) EDC: 04/25/2025 MATERNAL ANATOMY Uterus: 11.1 x 5.7 x 6.6 cm Right Ovary: 3.7 x 2.1 x 2.8 cm Left Ovary: 2.5 x 1.6 x 1.8 cm Post CDS / Adnexa: wnl Presence of free fluid: No Presence of corpus luteal cyst: Right Ovary= 2.1 x 1.9 x 1.4 cm Presence of subchorionic bleed: No GESTATION / SURVEY CRL: 1.3 cm (7 weeks/4 days) Gestational Sac morphology: Normal Yolk Sac (normal less than 6mm): 3mm Cardiac Activity/Heart Rate: 156 bpm Rhythm: Normal IUP: Viable IUP Date of LMP: 07/14/2024 Beta HcG (if available): Not available at this time Single, viable IUP/ No abnormality visualized at this time IMPRESSION: 1. Single intrauterine gestation estimated at 7 weeks 4 days gestation based on the crown-rump length . Cardiac activity measures 156 beats per minute was observed during the study. [facility], , 09/10/2024 2:53 PM
--- NOTE | 2024-09-10 15:27 | ED ---
General Adult HPI - General Chief complaint: Recheck/Abnormal Lab/Rx Stated complaint: Spotting/Cramping(7weeks) Time Seen by Provider: 09/10/24 12:40 Source: patient Mode of arrival: ambulatory Limitations: no limitations - History of Present Illness Initial comments: 34-year-old female presents to the emergency department reporting vaginal bleeding. Patient is 8 weeks . She fell 2 days ago and started having vaginal bleeding last night. States that it got heavier this morning. States is bright red in coloration. At this time it is stopped but she has continued lower abdominal cramping. Denies loss of fluid. No dysuria, hematuria or difficulty voiding. Denies diarrhea, constipation, black or bloody stools. Denies any other injuries. No other alleviating, precipitating or modifying factors - Related Data Home Medications Medication Instructions Recorded Confirmed Albuterol Inhaler [Ventolin Hfa 2 inh INHALATION QID PRN 01/27/24 01/29/24 Inhaler] Cholecalciferol [Vitamin D3 (125 3 tab PO DAILY 01/27/24 01/29/24 Mcg = 5000 Iu)] Dicyclomine [Bentyl] 10 mg PO TID PRN 01/27/24 01/29/24 Levothyroxine Sodium 100 mcg PO DAILY 01/27/24 01/29/24 Omeprazole 20 mg PO DAILY 01/27/24 01/29/24 Allergies Allergy/AdvReac Type Severity Reaction Status Date / Time adhesive tape Allergy Itching Verified 09/10/24 12:40 Review of Systems ROS Statement: Those systems with pertinent positive or pertinent negative responses have been documented in the HPI. ROS Other: All systems not noted in ROS Statement are negative. Past Medical History Past Medical History: Asthma, Thyroid Disorder Additional Past Medical History / Comment(s): Hashimotos hypothyroid, vomiting & stomach cramping/pain since 2021, increased in severity 2023 History of Any Multi-Drug Resistant Organisms: None Reported Additional Past Surgical History / Comment(s): left breast biopsy, EGD Past Anesthesia/Blood Transfusion Reactions: No Reported Reaction Past Psychological History: Anxiety, Depression Smoking Status: Current every day smoker Past Alcohol Use History: Occasional Past Drug Use History: Marijuana - Past Family History Mother Family Medical History: Hypertension, Thyroid Disorder Additional Family Medical History / Comment(s): Jony's, Raynaud's, RA, Systemic Lupus, Irregular heart rate Daughter(s) Additional Family Medical History / Comment(s): Cystic Fibrosis Father Family Medical History: Diabetes Mellitus, Hyperlipidemia Additional Family Medical History / Comment(s): colitis Brother(s) Additional Family Medical History / Comment(s): Crohn's Disease General Exam Limitations: no limitations General appearance: alert, in no apparent distress Head exam: Present: atraumatic, normocephalic, normal inspection Eye exam: Present: normal appearance, PERRL, EOMI. Absent: scleral icterus, conjunctival injection, periorbital swelling ENT exam: Present: normal exam, mucous membranes moist Neck exam: Present: normal inspection. Absent: tenderness, meningismus, lymphadenopathy Respiratory exam: Present: normal lung sounds bilaterally. Absent: respiratory distress, wheezes, rales, rhonchi, stridor Cardiovascular Exam: Present: regular rate, normal rhythm, normal heart sounds. Absent: systolic murmur, diastolic murmur, rubs, gallop, clicks GI/Abdominal exam: Present: soft, normal bowel sounds. Absent: distended, tenderness, guarding, rebound, rigid Extremities exam: Present: normal inspection, full ROM, normal capillary refill. Absent: tenderness, pedal edema, joint swelling, calf tenderness Back exam: Present: normal inspection Neurological exam: Present: alert, oriented X3, CN II-XII intact Psychiatric exam: Present: normal affect, normal mood Skin exam: Present: warm, dry, intact, normal color. Absent: rash Course Vital Signs 09/10/24 12:38 Temperature 97.8 F Pulse Rate 65 Respiratory 20 Rate Blood Pressure 155/94 O2 Sat by Pulse 98 Oximetry Medical Decision Making - Medical Decision Making Was pt. sent in by a medical professional or institution (, PA, [facility], urgent care, hospital, or correction...) When possible be specific @ -No Did you speak to anyone other than the patient for history (EMS, parent, family, police, friend...)? What history was obtained from this source @ -No Did you review nursing and triage notes (agree or disagree)? Why? @ -I reviewed and agree with nursing and triage notes Were old charts reviewed (outside hosp., previous admission, EMS record, old EKG, old radiological studies, urgent care reports/EKG's, correction records)? Report findings @ -No old charts were reviewed Differential Diagnosis (chest pain, altered mental status, abdominal pain women, abdominal pain men, vaginal bleeding, weakness, fever, dyspnea, syncope, headache, dizziness, GI bleed, back pain, seizure, CVA, palpatations, mental health, musculoskeletal)? @ -Differential Vaginal Bleeding: Spontaneous , threatened , molar , ectopic , bloody show, incompetent cervix, abruptioplacenta, placenta previa, uterine rupture, dysfunctional uterine bleeding, hemorrhage, uterine fibroids, this is not meant to be an all-inclusive list. EKG interpreted by me (3pts min.). @ -Not done X-rays interpreted by me (1pt min.). @ -None done CT interpreted by me (1pt min.). @ -None done U/S interpreted by me (1pt. min.). @ -US which demonstrates intrauterine What testing was considered but not performed or refused? (CT, X-rays, U/S, labs)? Why? @ -None What meds were considered but not given or refused? Why? @ -None Did you discuss the management of the patient with other professionals (professionals i.e. , PA, [facility] SE[employer]ONER, lab, RT, psych nurse, social work therapist, general medical practitioner, teacher, reserve officer, test case developer)? Give summary @ -No Was smoking cessation discussed for >3mins.? @ -No Was critical care preformed (if so, how long)? @ -No Were there social determinants of health that impacted care today? How? (Homelessness, low income, unemployed, alcoholism, drug addiction, transportation, low edu. Level, literacy, decrease access to med. care, shelter, rehab)? @ -No Was there de-escalation of care discussed even if they declined (Discuss DNR or withdrawal of care, Hospice)? DNR status @ -No What co-morbidities impacted this encounter? (DM, HTN, Smoking, COPD, CAD, Cancer, CVA, ARF, Chemo, Hep., AIDS, mental health diagnosis, sleep apnea, morbid obesity)? @ -None Was patient admitted / discharged? Hospital course, mention meds given and route, prescriptions, significant lab abnormalities, going to OR and other pertinent info. @ -Upon arrival patient seen and evaluated in room 26. Thorough history and physical exam was performed. IV access was established and laboratory studies are conducted. Ultrasound was performed. Ultrasound does demonstrate viable intrauterine . Blood type is a positive. Patient states her bleeding is stopped at this time. Results are discussed with the patient. She is discharged home on pelvic rest. Instructed to follow-up with her [facility]PER[facility] and let them know that she has had some bleeding. She is to return for any new or worsening symptoms. Patient discharged in stable condition Undiagnosed new problem with uncertain prognosis? @ -No Drug Therapy requiring intensive monitoring for toxicity (Heparin, Nitro, Insulin, Cardizem)? @ -No Were any procedures done? @ -No Diagnosis/symptom? @ -Acute threatened miscarriage Acute, or Chronic, or Acute on Chronic? @ -Acute Uncomplicated (without systemic symptoms) or Complicated (systemic symptoms)? @ -Complicated Side effects of treatment? @ -No Exacerbation, Progression, or Severe Exacerbation? @ -No Poses a threat to life or bodily function? How? (Chest pain, USA, PR, pneumonia, PE, COPD, DKA, ARF, appy, cholecystitis, CVA, Diverticulitis, Homicidal, Suicidal, threat to staff... and all critical care pts) @ -No - Lab Data Result diagrams: 09/10/24 13:42 09/10/24 13:42 Lab Results 09/10/24 09/10/24 09/10/24 Range/Units 13:40 13:42 13:42 WBC 6.86 (4.50-10.00) 10*3/uL RBC 4.43 (4.10-5.20) 10*6/uL Hgb 14.1 (12.0-15.0) g/dL Hct 40.7 (37.2-46.3) % MCV 91.9 (80.0-97.0) fL MCH 31.8 (27.0-32.0) pg MCHC 34.6 (32.0-37.0) g/dL Plt Count 268 (140-440) 10*3/uL MPV 11.1 (9.5-12.2) fL Immature Gran % (Auto) 0.1 % Neutrophils % 61.4 % Lymphocytes % 28.4 % Monocytes % 8.5 % Eosinophils % 0.7 % Basophils % 0.9 % Immature Gran # 0.01 (0.00-0.04) 10*3/uL Neutrophils # 4.21 (1.80-7.70) 10*3/uL Lymphocytes # 1.95 (0.90-5.00) 10*3/uL Monocytes # 0.58 (0.20-1.00) 10*3/uL Eosinophils # 0.05 (0.04-0.35) 10*3/uL Basophils # 0.06 (0.00-0.10) 10*3/uL Sodium 135 L (137-145) mmol/L Potassium 4.3 (3.5-5.1) mmol/L Chloride 104 (98-107) mmol/L Carbon Dioxide 23 (22-30) mmol/L Anion Gap 8 mmol/L BUN 9 (7-17) mg/dL Creatinine 0.52 (0.52-1.04) mg/dL Est GFR (CKD-EPI)AfAm >90 (>60 ml/min/1.73 sqM) Est GFR (CKD-EPI)NonAf >90 (>60 ml/min/1.73 sqM) Glucose 100 H (74-99) mg/dL Calcium 9.7 (8.4-10.2) mg/dL Total Bilirubin 0.5 (0.2-1.3) mg/dL AST 19 (14-36) U/L ALT 13 (4-34) U/L Alkaline Phosphatase 42 (38-126) U/L Total Protein 7.0 (6.3-8.2) g/dL Albumin 4.2 (3.5-5.0) g/dL HCG, Quant 69958.4 mIU/mL Urine Color Urine Appearance (Clear) Urine pH (5.0-8.0) Ur Specific [place] (1.001-1.035) Urine Protein (Negative) Urine Glucose (UA) (Negative) Urine Ketones (Negative) Urine Blood (Negative) Urine Nitrite (Negative) Urine Bilirubin (Negative) Urine Urobilinogen (<2.0) mg/dL Ur Leukocyte Esterase (Negative) Urine RBC (0-5) /hpf Urine WBC (0-5) /hpf Ur Squamous Epith Cells (0-4) /hpf Urine Yeast (Budding) (None) /hpf Blood Type A Positive Blood Type Recheck A Pos Bld Type Recheck Status No Antibody Screen NEGATIVE Spec Expiration Date 09/13/2024233909/10/24 Range/Units 14:19 WBC (4.50-10.00) 10*3/uL RBC (4.10-5.20) 10*6/uL Hgb (12.0-15.0) g/dL Hct (37.2-46.3) % MCV (80.0-97.0) fL MCH (27.0-32.0) pg MCHC (32.0-37.0) g/dL Plt Count (140-440) 10*3/uL MPV (9.5-12.2) fL Immature Gran % (Auto) % Neutrophils % % Lymphocytes % % Monocytes % % Eosinophils % % Basophils % % Immature Gran # (0.00-0.04) 10*3/uL Neutrophils # (1.80-7.70) 10*3/uL Lymphocytes # (0.90-5.00) 10*3/uL Monocytes # (0.20-1.00) 10*3/uL Eosinophils # (0.04-0.35) 10*3/uL Basophils # (0.00-0.10) 10*3/uL Sodium (137-145) mmol/L Potassium (3.5-5.1) mmol/L Chloride (98-107) mmol/L Carbon Dioxide (22-30) mmol/L Anion Gap mmol/L BUN (7-17) mg/dL Creatinine (0.52-1.04) mg/dL Est GFR (CKD-EPI)AfAm (>60 ml/min/1.73 sqM) Est GFR (CKD-EPI)NonAf (>60 ml/min/1.73 sqM) Glucose (74-99) mg/dL Calcium (8.4-10.2) mg/dL Total Bilirubin (0.2-1.3) mg/dL AST (14-36) U/L ALT (4-34) U/L Alkaline Phosphatase (38-126) U/L Total Protein (6.3-8.2) g/dL Albumin (3.5-5.0) g/dL HCG, Quant mIU/mL Urine Color Light Yellow Urine Appearance Turbid H (Clear) Urine pH 7.5 (5.0-8.0) Ur Specific [place] 1.021 (1.001-1.035) Urine Protein Negative (Negative) Urine Glucose (UA) Negative (Negative) Urine Ketones Negative (Negative) Urine Blood Negative (Negative) Urine Nitrite Negative (Negative) Urine Bilirubin Negative (Negative) Urine Urobilinogen <2.0 (<2.0) mg/dL Ur Leukocyte Esterase Negative (Negative) Urine RBC 3 (0-5) /hpf Urine WBC 6 H (0-5) /hpf Ur Squamous Epith Cells 5 H (0-4) /hpf Urine Yeast (Budding) Many H (None) /hpf Blood Type Blood Type Recheck Bld Type Recheck Status Antibody Screen Spec Expiration Date Disposition Clinical Impression: Threatened miscarriage, Coccygeal pain Disposition: HOME SELF-CARE Condition: Stable Instructions (If sedation given, give patient instructions): Threatened Miscarriage (ED) Additional Instructions: We will follow-up with your urine sample. You should go on pelvic rest which means nothing inside the vagina. Follow-up with your [facility]PER[facility]. Take Tylenol for pain. Return for any new or worsening symptoms Is patient prescribed a controlled substance at d/c from ED?: No Referrals: Wei Lema MD [Primary Care Provider] - 1-2 days Time of Disposition: 15:27
[2024-09-10] MEDS: ACETAMINOPHEN TAB 500 MG TAB PO STA (15:35)
[2024-09-10 15:59] LABS: Appearance,Urine Turbid (Clear); Bilirubin,Urine Negative (Negative); Blood,Urine Negative (Negative); Budding Yeast,Urine Many /hpf; Color,Urine Light Yellow; Glucose,Urine (UA) Negative (Negative); Ketones,Urine Negative (Negative); Leukocyte Esterase,Urine Negative (Negative); Nitrite,Urine Negative (Negative); PH, Urine 7.5 (5.0-8.0); Protein,Urine Negative (Negative); RBC,Urine 3 /hpf (0-5); Specific Gravity,Urine 1.021 (1.001-1.035); Squamous Epithelial Cell,Urine 5 /hpf (0-4); Urobilinogen,Urine <2.0 mg/dL (<2.0); WBC,Urine 6 /hpf (0-5)
== END 2024-09-10 15:39 | disposition home or self-care (01) ==
LOC: EC 12:34
DX: O20.0 Threatened abortion (principal); O99.891 Other specified diseases and conditions complicating pregnancy; M53.3 Sacrococcygeal disorders, not elsewhere classified; O99.331 Smoking (tobacco) complicating pregnancy, first trimester; F17.200 Nicotine dependence, unspecified, uncomplicated; Z91.048 Other nonmedicinal substance allergy status; Z3A.08 8 weeks gestation of pregnancy; W19.XXXA Unspecified fall, initial encounter
CPT/HCPCS: 36415; 76801; 80053; 81001; 84702; 85025; 86850; 86900; 86901; 99284

== ENCOUNTER 2024-10-01 13:56 | Emergency (ER) | payer OTHER ==
[2024-10-01 14:34] VITALS: TEMP 99
--- NOTE | 2024-10-01 14:43 | ED ---
Skin/Abscess/FB HPI - General Chief complaint: Skin/Abscess/Foreign Body Stated complaint: L side arm sore Time Seen by Provider: 10/01/24 14:39 Source: patient, RN notes reviewed Mode of arrival: ambulatory Limitations: no limitations - History of Present Illness Initial comments: 34-year-old female presenting for left breast infection x 1 week. Reports area has begun to drain and is painful and warm. Denies fevers, nausea, vomiting. States she has had this in the past in various locations and usually resolve on their own. Denies . States she was recently earlier this year however had a miscarriage. - Related Data Home Medications Medication Instructions Recorded Confirmed Albuterol Inhaler [Ventolin Hfa 2 inh INHALATION QID PRN 01/27/24 01/29/24 Inhaler] Cholecalciferol [Vitamin D3 (125 3 tab PO DAILY 01/27/24 01/29/24 Mcg = 5000 Iu)] Dicyclomine [Bentyl] 10 mg PO TID PRN 01/27/24 01/29/24 Levothyroxine Sodium 100 mcg PO DAILY 01/27/24 01/29/24 Omeprazole 20 mg PO DAILY 01/27/24 01/29/24 Previous Rx's Medication Instructions Recorded Cephalexin [Keflex] 500 mg PO Q6HR #40 cap 10/01/24 Sulfamethox-Tmp 800-160Mg [Bactrim 1 each PO Q12HR #20 tab 10/01/24 Ds] Allergies Allergy/AdvReac Type Severity Reaction Status Date / Time adhesive tape Allergy Itching Verified 10/01/24 14:11 Review of Systems ROS Statement: Those systems with pertinent positive or pertinent negative responses have been documented in the HPI. ROS Other: All systems not noted in ROS Statement are negative. Past Medical History Past Medical History: Asthma, Thyroid Disorder Additional Past Medical History / Comment(s): Hashimotos hypothyroid, vomiting & stomach cramping/pain since 2021, increased in severity 2023 History of Any Multi-Drug Resistant Organisms: None Reported Additional Past Surgical History / Comment(s): left breast biopsy, EGD Past Anesthesia/Blood Transfusion Reactions: No Reported Reaction Past Psychological History: Anxiety, Depression Smoking Status: Current every day smoker Past Alcohol Use History: Occasional Past Drug Use History: Marijuana - Past Family History Mother Family Medical History: Hypertension, Thyroid Disorder Additional Family Medical History / Comment(s): Jnoy's, Raynaud's, RA, Systemic Lupus, Irregular heart rate Daughter(s) Additional Family Medical History / Comment(s): Cystic Fibrosis Father Family Medical History: Diabetes Mellitus, Hyperlipidemia Additional Family Medical History / Comment(s): colitis Brother(s) Additional Family Medical History / Comment(s): Crohn's Disease General Exam Limitations: no limitations General appearance: alert, in no apparent distress Head exam: Present: atraumatic, normocephalic, normal inspection Eye exam: Present: normal appearance, PERRL, EOMI. Absent: scleral icterus, conjunctival injection, periorbital swelling Respiratory exam: Present: normal lung sounds bilaterally. Absent: respiratory distress, wheezes, rales, rhonchi, stridor Cardiovascular Exam: Present: regular rate, normal rhythm, normal heart sounds. Absent: systolic murmur, diastolic murmur, rubs, gallop, clicks Neurological exam: Present: alert, oriented X3 Psychiatric exam: Present: normal affect, normal mood Skin exam: Present: warm, dry, intact, normal color, other (There is a 3 x 3 cm indurated erythematous mass present on lateral aspect of left breast with active drainage. No fluctuance) Course Vital Signs 10/01/24 10/01/24 14:07 14:33 Temperature 99.4 F 99.0 F Pulse Rate 60 Respiratory 21 Rate Blood Pressure 134/78 O2 Sat by Pulse 99 Oximetry Medical Decision Making - Medical Decision Making Was pt. sent in by a medical professional or institution (, PA, [facility], urgent care, hospital, or senior living...) When possible be specific @ -No Did you speak to anyone other than the patient for history (EMS, parent, family, police, friend...)? What history was obtained from this source @ -No Did you review nursing and triage notes (agree or disagree)? Why? @ -I reviewed and agree with nursing and triage notes Were old charts reviewed (outside hosp., previous admission, EMS record, old EKG, old radiological studies, urgent care reports/EKG's, senior living records)? Report findings @ -No old charts were reviewed Differential Diagnosis (chest pain, altered mental status, abdominal pain women, abdominal pain men, vaginal bleeding, weakness, fever, dyspnea, syncope, headache, dizziness, GI bleed, back pain, seizure, CVA, palpatations, mental health, musculoskeletal)? @ -Differential Musculoskeletal Muscular strain, contusion, ligament sprain, fracture, arthritis, septic arthritis, bursitis, cellulitis, muscle spasm, nerve compression, DVT, arterial occlusion, herpes zoster, electrolyte abnormality, tumor.... This is not meant to be in all inclusive list EKG interpreted by me (3pts min.). @ -None X-rays interpreted by me (1pt min.). @ -None done CT interpreted by me (1pt min.). @ -None done U/S interpreted by me (1pt. min.). @ -None done What testing was considered but not performed or refused? (CT, X-rays, U/S, labs)? Why? @ -None What meds were considered but not given or refused? Why? @ -None Did you discuss the management of the patient with other professionals (professionals i.e. , PA, [facility] [employer], lab, RT, psych nurse, social science instructor, traffic circuit engineer, teacher, chief security officer, continuous pillowcase cutter)? Give summary @ -No Was smoking cessation discussed for >3mins.? @ -No Was critical care preformed (if so, how long)? @ -No Were there social determinants of health that impacted care today? How? (Homelessness, low income, unemployed, alcoholism, drug addiction, transportation, low edu. Level, literacy, decrease access to med. care, senior care, rehab)? @ -No Was there de-escalation of care discussed even if they declined (Discuss DNR or withdrawal of care, Hospice)? DNR status @ -No What co-morbidities impacted this encounter? (DM, HTN, Smoking, COPD, CAD, Cancer, CVA, ARF, Chemo, Hep., AIDS, mental health diagnosis, sleep apnea, mor bid obesity)? @ -None Was patient admitted / discharged? Hospital course, mention meds given and route, prescriptions, significant lab abnormalities, going to OR and other pertinent info. @ -Discharge. 34-year-old female presenting for left breast abscess x 1 week. Temperature remarkable for 99.4, 99 on recheck. No tachycardia. There is a 3 x 3 cm indurated erythematous mass on lateral aspect of left breast with active drainage. Discussed diagnosis of abscess. Patient will be provided with outpatient course of antibiotics. Advised to perform warm compresses to area 3 times daily. Appropriate return precautions and follow-up care discussed. Case was discussed with my ED attending Dr. Nova. Undiagnosed new problem with uncertain prognosis? @ -No Drug Therapy requiring intensive monitoring for toxicity (Heparin, Nitro, Insulin, Cardizem)? @ -No Were any procedures done? @ -No Diagnosis/symptom? @ -Left breast abscess Acute, or Chronic, or Acute on Chronic? @ -Acute Uncomplicated (without systemic symptoms) or Complicated (systemic symptoms)? @ -Uncomplicated Side effects of treatment? @ -No Exacerbation, Progression, or Severe Exacerbation? @ -No Poses a threat to life or bodily function? How? (Chest pain, USA, [place], pneumonia, PE, COPD, DKA, ARF, appy, cholecystitis, CVA, Diverticulitis, Homicidal, Suicidal, threat to staff... and all critical care pts) @ -No Disposition Clinical Impression: Left breast abscess Disposition: HOME SELF-CARE Condition: Stable Instructions (If sedation given, give patient instructions): Abscess (ED) Additional Instructions: Take Keflex and Bactrim as prescribed. Apply warm compresses to affected area 3 times daily. Please return to the Emergency Department if symptoms worsen or any other concerns. Prescriptions: Sulfamethox-Tmp 800-160Mg [Bactrim Ds] 1 each PO Q12HR #20 tab Cephalexin [Keflex] 500 mg PO Q6HR #40 cap Is patient prescribed a controlled substance at d/c from ED?: No Referrals: Wei Lema MD [Primary Care Provider] - 1-2 days Time of Disposition: 15:05
[2024-10-05 02:46] VITALS: BP 130/74; PULSE 66; RESP 20
== END 2024-10-01 15:22 | disposition home or self-care (01) ==
LOC: EC 13:56
DX: N61.1 Abscess of the breast and nipple (principal); F17.200 Nicotine dependence, unspecified, uncomplicated; Z91.048 Other nonmedicinal substance allergy status
CPT/HCPCS: 99282